=== PATIENT | male | born 1970 | race Caucasian/White ===

== ENCOUNTER 2020-07-16 08:55 | Outpatient (REF) | payer MEDICARE, MEDICAID, SELFPAY ==
[2020-07-16 11:47] LABS: Alanine Aminotransferase 77 U/L (0-40); Albumin Level 4.6 g/dL (3.5-5.0); Alkaline Phosphatase 58 U/L (39-117); Anion Gap 14 (12-20); Aspartate Amino Transferase 34 U/L (5-37); Bilirubin Total 0.8 mg/dL (0.0-1.0); Blood Urea Nitrogen 12 mg/dL (9-16); Calcium 8.9 mg/dL (8.4-10.2); Carbon Dioxide 27 mmol/L (22-29); Chloride 102 mmol/L (96-108); Estimated Glomerular Filt Rate > 60; Glucose Random 128 mg/dL (60-115); Potassium 3.8 mmol/l (3.3-5.1); Sodium 139 mmol/L (135-145); Total Protein 6.9 g/dL (6.5-8.0)
[2020-07-16 12:09] LABS: TSH reflex Free T4 63.86 mIU/mL (0.32-4.0)
[2020-07-16 12:43] LABS: Free T4 (Free Thyroxine) 0.83 ng/dL (0.71-1.85)
[2020-07-17 04:03] LABS: SARS COV2 IgG Negative (Negative)
== END 2020-07-16 08:56 | disposition home or self-care (01) ==
LOC: HO.HMGCLDS 08:55
PROVIDERS: PCP Nurse Practitioner Family; Visit Provider Internal Medicine
DX: E03.9 Hypothyroidism, unspecified (principal); Z20.828 Contact with and (suspected) exposure to other viral communicable diseases
CPT/HCPCS: 80053; 84439; 84443; 86769

== ENCOUNTER 2020-10-22 11:54 | Outpatient (REF) | payer MEDICARE, MEDICAID, SELFPAY ==
[2020-10-22 13:53] LABS: MANUAL DIFF FLAG NO
[2020-10-22 14:03] LABS: Basophils Percent Auto 0.5 % (0-2); Eosinophils Absolute Auto 0.2 X10*3/uL (0.0-0.4); Eosinophils Percent Auto 3.2 % (0-4); Hematocrit 49.8 % (42-52); Hemoglobin 17.2 g/dl (14.0-18.0); Imm Gran Abs Auto 0.01 X10*3/uL (0.00-0.03); Imm Gran Pct Auto 0.2 % (0.0-0.4); Lymphocytes Absolute Auto 1.3 X10*3/uL (1.2-4.9); Lymphocytes Percent Auto 20.2 % (20-40); Mean Corpuscular HGB Conc 34.5 g/dl (31.0-36.0); Mean Corpuscular Hemoglobin 32.6 pg (27.0-33.0); Mean Corpuscular Volume 94.3 fL (80-98); Monocytes Absolute Auto 0.5 X10*3/uL (0.1-1.2); Monocytes Percent Auto 7.2 % (2-11); Neutrophils Absolute Auto 4.5 X10*3/uL (2.0-8.3); Neutrophils Percent Auto 68.7 % (45-73); Platelet Count 198 X10*3/uL (160-400); Red Blood Count 5.28 X10*6/uL (4.60-5.80); Red Cell Distribution Width 12.9 % (11.0-16.0); White Blood Count 6.6 X10*3/uL (4.8-10.8)
== END 2020-10-22 11:55 | disposition home or self-care (01) ==
LOC: HO.HMGCLDS 11:54
PROVIDERS: PCP Nurse Practitioner Family; Visit Provider Nurse Practitioner Family
DX: D73.89 Other diseases of spleen (principal)
CPT/HCPCS: 36415; 85025

== ENCOUNTER 2020-10-30 15:02 | Outpatient (REF) | payer MEDICARE, MEDICAID, SELFPAY ==
--- NOTE | ~2020-10-30 | MR_ITS ---
EXAMINATION: MR ABDOMEN WITHOUT AND WITH CONTRAST CLINICAL INFORMATION: Follow-up splenic lesion COMPARISON: Previous abdominal ultrasound June 2015 TECHNIQUE: MR abdomen was performed without and with use of 10 mL intravenous Gadavist gadolinium contrast. Postcontrast images are performed in multiphase dynamic sequences. Imaging was performed in 3 planes. FINDINGS: LUNG BASES: The visualized lung bases are unremarkable. LIVER, GALLBLADDER, AND BILIARY TREE: The liver is normal in size in size and contour. There is fatty infiltration of the liver with areas of focal fatty sparing. No focal liver lesion is seen. The gallbladder is unremarkable with no evidence of gallbladder wall thickening, or obvious pericholecystic inflammatory changes. PANCREAS: Unremarkable. SPLEEN: There are 4 lesions in the spleen. The largest measures 1.5 cm in the inferior hilum of the spleen likely corresponds to lesion seen on prior ultrasound. These are ISO in signal on T1-weighted sequences to the spleen, slightly high signal on T2-weighted sequences and demonstrate peripheral along enhancement. MR appearance is suggestive of multiple liver hemangiomas. ADRENAL GLANDS: Normal. KIDNEYS AND URETERS: There are bilateral renal cysts. The kidneys are otherwise unremarkable. GASTROINTESTINAL TRACT: There is mild diverticulosis of the colon. No bowel obstruction. No ascites or fluid collection. ABDOMINAL WALL: No significant hernia is appreciated. LYMPH NODES: No lymphadenopathy. VASCULAR: Unremarkable. OSSEOUS STRUCTURES: Marrow signal normal. MR/MR abdomen wo/w con IMPRESSION: Multiple splenic hemangiomas. Fatty infiltration of the liver. Bilateral renal cysts.
== END 2020-10-30 15:03 | disposition home or self-care (01) ==
LOC: HO.MRI 15:02
PROVIDERS: Visit Provider Nurse Practitioner Family
DX: D73.89 Other diseases of spleen (principal)
CPT/HCPCS: 74183; A9585

== ENCOUNTER 2020-11-10 12:01 | Outpatient (REF) | payer MEDICARE, MEDICAID, SELFPAY ==
[2020-11-10 14:21] LABS: Alanine Aminotransferase 85 U/L (0-40); Albumin Level 4.6 g/dL (3.5-5.0); Alkaline Phosphatase 60 U/L (39-117); Anion Gap 14 (12-20); Aspartate Amino Transferase 37 U/L (5-37); Bilirubin Total 1.2 mg/dL (0.0-1.0); Blood Urea Nitrogen 13 mg/dL (9-16); Calcium 9.2 mg/dL (8.4-10.2); Carbon Dioxide 30 mmol/L (22-29); Chloride 101 mmol/L (96-108); Estimated Glomerular Filt Rate > 60; Glucose Random 240 mg/dL (60-115); Potassium 3.9 mmol/L (3.3-5.1); Sodium 141 mmol/L (135-145); Total Protein 7.1 g/dL (6.5-8.0)
[2020-11-10 14:45] LABS: TSH reflex Free T4 3.33 uIU/mL (0.32-4.0)
== END 2020-11-10 12:02 | disposition home or self-care (01) ==
LOC: HO.HMGCLDS 12:01
PROVIDERS: PCP Nurse Practitioner Family; Visit Provider Nurse Practitioner Family
DX: E03.9 Hypothyroidism, unspecified (principal)
CPT/HCPCS: 36415; 80053; 84443

== ENCOUNTER 2020-11-11 10:00 | Outpatient (REF) | payer MEDICARE, MEDICAID, SELFPAY ==
[2020-11-11 12:00] LABS: Estimated Average Glucose 151 mg/dL; Hemoglobin A1c % 6.9 %
== END 2020-11-11 10:01 | disposition home or self-care (01) ==
LOC: HO.HMGCLDS 10:00
PROVIDERS: PCP Nurse Practitioner Family; Visit Provider Nurse Practitioner Family
DX: R73.01 Impaired fasting glucose (principal)
CPT/HCPCS: 36415; 83036

== ENCOUNTER 2021-12-02 12:14 | Outpatient (REF) | payer MEDICARE, MEDICAID, SELFPAY ==
[2021-12-02 14:00] LABS: Appearance Urine HAZY; Color Urine YELLOW; Glucose Urine UA 100 MG/DL (NEG); Leukocyte Esterase Urine NEG (NEG); Nitrite Urine NEG (NEG); Urine Blood NEG (NEG); Urine Ketones NEG (NEG); Urine Protein NEG (NEG-TRACE)
[2021-12-02 14:10] LABS: Estimated Average Glucose 197 mg/dL; Hemoglobin A1c % 8.5 %
[2021-12-02 14:36] LABS: Creatinine Urine 157.88 mg/dL; Microalbum/Creatinine Ratio Ur 17.1 ug/mg cr
[2021-12-02 15:14] LABS: Alanine Aminotransferase 51 U/L (0-40); Albumin Level 4.4 g/dL (3.5-5.0); Alkaline Phosphatase 58 U/L (39-117); Anion Gap 15 (12-20); Aspartate Amino Transferase 28 U/L (5-37); Bilirubin Total 1.5 mg/dL (0.0-1.0); Blood Urea Nitrogen 13 mg/dL (9-16); Calcium 9.7 mg/dL (8.4-10.2); Carbon Dioxide 25 mmol/L (22-29); Chloride 103 mmol/L (96-108); Cholesterol 176 mg/dL; Estimated Glomerular Filt Rate > 60; Glucose Fasting 178 mg/dL (60-99); HDL Cholesterol 33 mg/dL; LDL Cholesterol Calculated 127 mg/dl; Potassium 4.6 mmol/L (3.3-5.1); Sodium 138 mmol/L (135-145); Total Protein 7.2 g/dL (6.5-8.0); Triglycerides 81 mg/dL
[2021-12-02 16:04] LABS: Free T4 (Free Thyroxine) 0.93 ng/dL (0.71-1.85)
== END 2021-12-02 12:15 | disposition home or self-care (01) ==
LOC: HO.HMGCLDS 12:14
PROVIDERS: Visit Provider Nurse Practitioner Family
DX: Z00.00 Encounter for general adult medical examination without abnormal findings (principal); E11.9 Type 2 diabetes mellitus without complications
CPT/HCPCS: 36415; 80053; 80061; 81003; 82043; 83036; 84439; 84443

== ENCOUNTER 2021-12-16 12:21 | Outpatient (REF) | payer MEDICARE, MEDICAID, SELFPAY ==
--- NOTE | ~2021-12-16 | XR_ITS ---
EXAMINATION: XR CHEST CLINICAL INFORMATION: Chest pain COMPARISON: 06/24/2016 TECHNIQUE: 2 views of the chest were obtained. FINDINGS: Normal symmetric lung volumes. No parenchymal consolidation. Stable faint subcentimeter density projecting over the left upper lung/anterior third rib. Diagnostic considerations as discussed previously, including spondylotic bone lesion, such as a bone island, or calcified granuloma. Regardless of etiology, it is benign. No pleural effusion. No pneumothorax. Cardiomediastinal silhouette and pulmonary vascularity are within normal limits. The aorta is atherosclerotic. No acute osseous abnormalities. XR/XR chest 2V IMPRESSION: No acute findings.
[2021-12-16 14:07] LABS: Bilirubin Direct 0.3 mg/dL (0.0-0.5)
[2021-12-17 08:34] LABS: HBS Num1 1.03 mIU/mL (0-7.99); HBc Num1 0.15 S/CO (0.00-0.79); Hepatitis B Core Antibody Nonreactive (Nonreactive); ~HepC Num1 0.12 S/CO (0.00-0.79); ~Hepatitis B Surface Antibody NONREACTIVE (Nonreactive); ~Hepatitis C Antibody Nonreactive (Nonreactive)
[2021-12-17 08:45] LABS: Hepatitis B Surface Antigen Negative (Negative)
[2021-12-18 08:16] LABS: HBsAGNum1 0.19 S/CO (0.00-0.99); Hepatitis A Antibody IgM 0.18 Index (0-0.79); ~Hepatitis A Antibody IgM Nonreactive (Nonreactive)
== END 2021-12-16 12:22 | disposition home or self-care (01) ==
LOC: HO.HMGCX 12:21
PROVIDERS: PCP Nurse Practitioner Family; Visit Provider Nurse Practitioner Family
DX: R07.89 Other chest pain (principal); R74.8 Abnormal levels of other serum enzymes; R17 Unspecified jaundice
CPT/HCPCS: 36415; 71046; 82247; 82248; 86704; 86706; 86709; 86803; 87340

== ENCOUNTER 2022-01-19 12:58 | Outpatient (REF) | payer MEDICARE, MEDICAID, SELFPAY ==
--- NOTE | ~2022-01-19 | XR_ITS ---
EXAMINATION: XR chest 2V CLINICAL INFORMATION: Reason for Exam J18.9 - Pneumonia, unspecified organism COMPARISON: December 2021 TECHNIQUE: XR chest 2V Lungs and Eve: Both lungs are clear. Pleura: Normal. Costophrenic angles are sharp. No pneumothorax. Heart: The heart is normal in size. Mediastinum: The mediastinum is within normal limits.. Bones: Skeletal structures included are normal for patient's age. XR/XR chest 2V IMPRESSION: No radiographic evidence of acute cardiopulmonary disease.
[2022-01-19 14:11] LABS: Estimated Average Glucose 189 mg/dL; Hemoglobin A1c % 8.2 %
[2022-01-19 14:28] LABS: Creatinine Urine 160.97 mg/dL; Microalbum/Creatinine Ratio Ur 13.6 ug/mg cr
[2022-01-19 14:30] LABS: Alanine Aminotransferase 46 U/L (0-40); Albumin Level 4.5 g/dL (3.5-5.0); Alkaline Phosphatase 60 U/L (39-117); Anion Gap 14 (12-20); Aspartate Amino Transferase 26 U/L (5-37); Bilirubin Total 0.7 mg/dL (0.0-1.0); Blood Urea Nitrogen 13 mg/dL (9-16); Calcium 9.7 mg/dL (8.4-10.2); Carbon Dioxide 26 mmol/L (22-29); Chloride 103 mmol/L (96-108); Cholesterol 196 mg/dL; Estimated Glomerular Filt Rate > 60; Glucose Random 180 mg/dL (60-115); HDL Cholesterol 34 mg/dL; LDL Cholesterol Calculated 132 mg/dl; Potassium 4.2 mmol/L (3.3-5.1); Sodium 139 mmol/L (135-145); Total Protein 7.4 g/dL (6.5-8.0); Triglycerides 150 mg/dL
[2022-01-19 14:48] LABS: TSH reflex Free T4 5.56 uIU/mL (0.32-4.0)
[2022-01-19 16:06] LABS: Free T4 (Free Thyroxine) 0.95 ng/dL (0.71-1.85)
== END 2022-01-19 12:59 | disposition home or self-care (01) ==
LOC: HO.HMGCX 12:58
PROVIDERS: Visit Provider Nurse Practitioner Family
DX: J18.9 Pneumonia, unspecified organism (principal); E03.9 Hypothyroidism, unspecified; E11.9 Type 2 diabetes mellitus without complications
CPT/HCPCS: 36415; 71046; 80053; 80061; 82043; 83036; 84439; 84443

== ENCOUNTER 2022-02-10 10:32 | Outpatient (REF) | payer MEDICARE, MEDICAID, SELFPAY ==
[2022-02-10 12:17] LABS: TSH reflex Free T4 5.31 uIU/mL (0.32-4.0)
[2022-02-10 13:08] LABS: Free T4 (Free Thyroxine) 0.99 ng/dL (0.71-1.85)
== END 2022-02-10 10:33 | disposition home or self-care (01) ==
LOC: HO.HMGCLDS 10:32
PROVIDERS: PCP Nurse Practitioner Family; Visit Provider Nurse Practitioner Family
DX: E03.9 Hypothyroidism, unspecified (principal)
CPT/HCPCS: 36415; 84439; 84443

== ENCOUNTER 2022-02-17 12:54 | Outpatient (REF) | payer MEDICARE, MEDICAID, SELFPAY ==
--- NOTE | ~2022-02-17 | US_ITS ---
EXAMINATION: US COMPLETE ABDOMEN WITH LIVER ELASTOGRAPHY CLINICAL INFORMATION: Abnormal levels of serum enzyme COMPARISON: MRI abdomen 10/30/2020 TECHNIQUE: Real-time imaging of the abdominal viscera. Noninvasive ultrasound liver fibrosis assessment is performed using Crys ElastPQ point quantification shear wave elastography (2D-SWE) with a C5-2 MHz transducer. Multiple elastography samples are obtained. FINDINGS: PANCREAS: The visualized pancreatic head are normal in appearance. The remainder of the pancreas is obscured from visualization by the overlying bowel gas. ABDOMINAL AORTA: The middle, and distal aortic segments are normal in caliber. The proximal abdominal aorta is not well visualized. INFERIOR VENA CAVA: Visualized portions are normal. LIVER:The liver demonstrates normal size, contour and diffusely heterogeneous with areas of focal fatty sparing adjacent to gallbladder. No focal lesion or intrahepatic biliary duct dilatation. The right lobe measures 16.2 cm in length. The left lobe measures 12.5 cm in length. Portal flow is hepatopedal Shear wave liver elastography median stiffness is 1.69 m/s (reference: normal median stiffness is 1.3 m/s or less). IQR/median stiffness to assess sampling precision is 0.13 (reference: good quality data set is IQR/median stiffness of 0.15 or less). GALLBLADDER: Gallbladder wall thickness measures 0.2 cm The gallbladder is physiologically distended without evidence of stones, sludge, polyps, wall thickening or pericholecystic fluid. COMMON BILE DUCT: Normal in caliber measuring 0.3 cm in diameter. RIGHT KIDNEY: There is anechoic cyst in midpole measuring 2.4 x 2.4 x 2.3 cm and lower pole measuring 1.1 x 1.0 x 0 0.9 mL No hydronephrosis. No renal calculi or focal parenchymal lesions. The kidney measures 12.0 cm in maximum dimension. LEFT KIDNEY: No hydronephrosis. No renal calculi or focal parenchymal lesions. The kidney measures 11.0 cm in maximum dimension. There is anechoic cyst in the lower pole measuring 0.9 x 0.8 x 0.8 cm. SPLEEN: Normal. The spleen measures 9.7. cm in maximum dimension. There are multiple echogenic lesions visualized consistent with hemangiomas.. The largest lesion measures 1.9 x 1.6 x 1.5 cm. On previous MRI the largest lesion measured 1.5 cm in the inferior hilum FREE FLUID: None. US/US abdomen comp w elastography IMPRESSION: 1. Heterogeneous echogenic liver with areas of focal fatty sparing around the gallbladder. Multiple hemangiomas of the spleen is approximately 4 was noted on the previous MRI abdomen. Bilateral renal cysts. No echogenic renal calculi. 2. Liver elastography: Median liver stiffness measures 1.69 m/s corresponding to cACLD (ruled out) REFERENCE: Society of Radiologists in Ultrasound Liver Stiffness Thresholds (2019): LIVER STIFFNESS THRESHOLDS: *Liver Stiffness equal or less than 1.3 m/s: High probability of being normal. *Liver Stiffness less than 1.7 m/s: In the absence of other known clinical signs, rules out compensated advanced chronic liver disease. *Liver Stiffness 1.7-2.1 m/s: Suggestive of compensated advanced chronic liver disease but need further test for confirmation. *Liver Stiffness over 2.1 m/s: Rules in compensated advanced chronic liver disease. *Liver Stiffness over 2.4 m/s: Suggestive of clinically significant portal hypertension. QUALITY OF DATA SET: *IQR/Median value equal or less than 0.15 implies a quality data set. *IQR/Median value over 0.15 implies a poor quality data set. SIGNIFICANT CHANGE FROM PRIOR EXAM: Significant change if liver stiffness measurement is 10% or greater from prior exam. OTHER CONSIDERATIONS: The stage of liver fibrosis may be overestimated in the setting of acute hepatitis, liver inflammation, elevated liver function tests, hepatic vascular congestion, obstructive cholestasis, non-fasting state, and infiltrative diseases such as amyloidosis and lymphoma. In some patients with NAFLD, the liver stiffness thresholds for compensated advanced chronic liver disease may be lower. In causes other than viral hepatitis and NAFLD, liver stiffness thresholds are not well established.
== END 2022-02-17 12:55 | disposition home or self-care (01) ==
LOC: HO.US 12:54
PROVIDERS: Visit Provider Nurse Practitioner Family
DX: R74.8 Abnormal levels of other serum enzymes (principal)
CPT/HCPCS: 76705; 76981

== ENCOUNTER 2022-03-31 12:26 | Outpatient (REF) | payer MEDICARE, MEDICAID, SELFPAY ==
[2022-03-31 14:21] LABS: TSH reflex Free T4 0.81 uIU/mL (0.32-4.0)
== END 2022-03-31 12:27 | disposition home or self-care (01) ==
LOC: HO.HMGCLDS 12:26
PROVIDERS: PCP Nurse Practitioner Family; Visit Provider Nurse Practitioner Family
DX: E03.9 Hypothyroidism, unspecified (principal)
CPT/HCPCS: 36415; 84443

== ENCOUNTER → 2022-04-28 14:51 | Outpatient (BNVA) | payer MEDICARE, MEDICAID, SELFPAY | PROVIDERS: PCP Nurse Practitioner Family; Visit Provider Nurse Practitioner | DX: Z01.818 Encounter for other preprocedural examination (principal) | CPT/HCPCS: 99202 ==

== ENCOUNTER 2022-06-24 11:31 | Day surgery (SDC) | payer MEDICARE, MEDICAID, SELFPAY ==
--- NOTE | 2022-06-23 08:47 | HO.ANESPROP2 ---
Documented by User: Mag Ruiz NP 06/23/22 08:48 HPI - Anesthesia Eval Consult details Narrative: 52yo M for Colonoscopy PMFSH Active Problems Active Problems: All Active Problems (Updated 06/09/22 @ 07:26 by Lukasz Ferro, [facility]) Screening PSA (prostate specific antigen) (Acute) Preop examination (Acute) Screen for colon cancer (Acute) Pneumonia (Acute) Medication management (Acute) Elevated liver enzymes (Acute) Elevated bilirubin (Acute) Chest discomfort (Acute) Acute viral bronchitis (Acute) Dermatitis, unspecified (Acute) Diabetes (Acute) Elevated fasting blood sugar (Acute) Splenic lesion (Acute) LLQ pain (Acute) Hypothyroid (Acute) Physical exam (Acute) GERD (gastroesophageal reflux disease) (Acute) Past Medical History Medical History Cervical adenopathy GERD (gastroesophageal reflux disease) Hypothyroid Leg edema Lung nodule Physical exam Presbyesophagus Thyroid carcinoma Thyroid nodule Family History Family History Father HTN (hypertension) Diabetes mellitus Mother No problems noted. Maternal Grandmother HTN (hypertension) Brother No problems noted. Surgical History Surgical History History of appendectomy History of thyroidectomy Social History Social History Housing: House Alcohol intake: never Patient Tobacco Use Status: Never used Tobacco e-Cigarette/Vaping Use: Never Used Second Hand Smoke Exposure: No Are you DNR?: No Advance Directives: No Advance Directives Information Provided: Yes service: No Current occupational status: employed Current occupation: [employer] Current occupational exposures/hazards: No Cognitive needs: No Hearing needs: No Vision needs: No Meds Allergies Allergy/AdvReac Type Severity Reaction Status Date / Time No Known Allergies Allergy Verified 04/28/22 15:11 [No Known Allergies*] Exam Exam Date and Time: June 23, 2022 0847 Pertinent Lab Results Pertinent Lab Results: Laboratory Tests 01/19/22 13:11 Sodium 139 Potassium 4.2 Chloride 103 BUN 13 Creatinine 0.98 Narrative Narrative: EKG 11/2021 NSR @ 85 Assessment and Plan Assessment Anesthesia Assessment: Chart Reviewed Documented by User: Bessy Magana MD 06/24/22 12:32 [facility] Past Medical History Medical History Cervical adenopathy GERD (gastroesophageal reflux disease) Hypothyroid Leg edema Lung nodule Physical exam Presbyesophagus Thyroid carcinoma Thyroid nodule Functional capacity: independent ambulation Family History Family History Father HTN (hypertension) Diabetes mellitus Mother No problems noted. Maternal Grandmother HTN (hypertension) Brother No problems noted. Family history of problems with anesthesia: No Surgical History Surgical History History of appendectomy History of thyroidectomy History of Problems with Anesthesia: No Social History Social History Housing: House Alcohol intake: never Patient Tobacco Use Status: Never used Tobacco e-Cigarette/Vaping Use: Never Used Second Hand Smoke Exposure: No Are you DNR?: No Advance Directives: No Advance Directives Information Provided: Yes service: No Current occupational status: employed Current occupation: [employer] Current occupational exposures/hazards: No Cognitive needs: No Hearing needs: No Vision needs: No Meds Allergies Allergy/AdvReac Type Severity Reaction Status Date / Time No Known Allergies Allergy Verified 04/28/22 15:11 [No Known Allergies*] Exam Airway Mallampati Class: III TM Dist: >3cm Neck ROM: Full Heart: RRR Lungs: CTA Assessment and Plan Final Anesthetic Review Family History of Problems with Anesthesia: No History of Problems with Anesthesia: No ASA Class: II Final Preanesthetic Review: No Changes in Pt Med Stat, Meds/Allgs Chart Reviewed, Consent Obtained/Reviewed and Anes Risks/Benef Reviewed Patient Risk: Low Procedure Risk: Low Anesthetic Plan Anesthetic Plan: MAC: Disposition: Standard PACU
[2022-06-24 07:26] VITALS: BMI 28.8
[2022-06-24 11:48] VITALS: BP 130/45; PULSE 90; RESP 19; TEMP 36.1; O2SAT 97
[2022-06-24 11:50] LABS: Glucose, Whole Blood 127 mg/dL (60-115)
[2022-06-24] MEDS: Lactated Ringers 1,000 ML 100 ML IVCONT (12:05)
--- NOTE | 2022-06-24 12:26 | MHC.SHP ---
Pre-Procedural Eval Section A Date of Service: 06/24/22 Section B Chief Complaint: screening Details of Present Illness: 52y.o M at average risk for CRC here for screening colonoscopy Medical History: No relevant PMH (T2DM, GERD, thyroid ca s/p thyroidectomy ) History of Previous Operations: Relevant previous surgery/procedure and date(s) (remote hx of appendectomy ) Allergies: Allergies Allergy/AdvReac Type Severity Reaction Status Date / Time No Known Allergies Allergy Verified 04/28/22 15:11 [No Known Allergies*] Review of Systems Review of Systems Comment: 10 point ROS negative Exam Exam Comment: Gen appear: No acute distress, well nourished HEENT: no icterus, no cervical lymphadenopathy Chest: No overt resp distress CVS: S1/S2, regular Abd: soft, nontender, nondistended Neuro: Does not make eye contact but able to answer all questions appropriately Ext: no peripheral edema Plan Diagnosis/Plan: Unchanged I have reviewed the history and physical and performed a pertinent physical examination on my patient. No changes have occurred unless specified.
--- NOTE | 2022-06-24 12:38 | P.OP_ITS ---
Operative Note Operative Note Date of Service: 06/24/22 Narrative: Procedure: Colonoscopy Indication: Screening Endoscopist: Yany Corbin MD Anesthesia Provider: Dr Paris Anesthesia type: MAC Instrument: Olympus [id number]-H190L Consent: Indication, risks vs benefits, and alternatives were discussed with the patient who gave written informed consent to proceed. Monitoring: EKG, pulse, pulse oximetry and blood pressure were monitored throughout the procedure. Please see anesthesia flowsheet. Procedure: The patient was brought to the procedure room and placed in the left lateral decubitus position. IV medications were administered by the anesthesia provider in attendance. A digital rectal exam was performed which was normal. The colonoscope was then inserted through the anus and advanced through the colon to the cecum at 85 cm. Mucosa was carefully examined under high definition white light as the instrument was slowly withdrawn in a retrograde panoramic fashion. Retroflexion was performed in rectum. The procedure was not difficult. There were no immediate obvious complications. The quality of the prep was BBPS: 3+3+2 = adequate Withdrawal time 23 minutes. Limitations: No limitations. Findings: Mucosa: Normal to cecum. Protruding lesions: * 1 sessile polyp of size 8 mm in ascending colon. Cold snare polypectomy was performed. The polyp was completely removed and retrieved. * 1 sessile polyp of size 7 mm in transverse colon. Cold snare polypectomy was performed. The polyp was completely removed and retrieved. * 1 sessile polyp of size 2 mm in sigmoid colon. Cold snare polypectomy was performed. The polyp was completely removed and retrieved. * Large internal hemorrhoids without stigmata of recent bleeding. Excavated lesions: * Few small mouthed diverticulosis of sigmoid colon. Impression: 1. Normal colon mucosa 2. Total of 3 polyps removed from ascending, transverse, and sigmoid colon. 3. Internal hemorrhoids Recommendations: - Follow path results. - Repeat colonoscopy in 3-5 years if all 3 polyps are adenomas.
[2022-06-24 13:20] VITALS: BP 90/58; PULSE 73; RESP 16; TEMP 36.6; O2SAT 97
[2022-06-24 13:35] VITALS: BP 103/62; PULSE 78; RESP 16; O2SAT 95
[2022-06-24 13:50] VITALS: BP 122/80; PULSE 80; RESP 16; TEMP 36.6; O2SAT 95
== END 2022-06-24 14:34 | disposition home or self-care (01) ==
PROVIDERS: PCP Nurse Practitioner Family; Visit Provider Internal Medicine
PROC: 0DJD8ZZ Inspection of Lower Intestinal Tract, Via Natural or Artificial Opening Endoscopic (ICD-10-PCS; CPT 45378; principal; 2022-06-24 12:40)
DX: Z12.11 Encounter for screening for malignant neoplasm of colon (principal); D12.2 Benign neoplasm of ascending colon; D12.3 Benign neoplasm of transverse colon; K63.5 Polyp of colon; K57.30 Diverticulosis of large intestine without perforation or abscess without bleeding; K64.8 Other hemorrhoids; K21.9 Gastro-esophageal reflux disease without esophagitis; E11.9 Type 2 diabetes mellitus without complications; E03.9 Hypothyroidism, unspecified; R91.1 Solitary pulmonary nodule; Z85.850 Personal history of malignant neoplasm of thyroid; Z79.84 Long term (current) use of oral hypoglycemic drugs; Z79.899 Other long term (current) drug therapy
CPT/HCPCS: 45385; 82947; 88305

== ENCOUNTER → 2022-07-08 15:37 | Outpatient (BNVA) | payer MEDICARE, MEDICAID, SELFPAY | PROVIDERS: PCP Nurse Practitioner Family; Visit Provider Nurse Practitioner | DX: D12.6 Benign neoplasm of colon, unspecified (principal) | CPT/HCPCS: 99212 ==

== ENCOUNTER 2022-09-14 10:11 | Outpatient (REF) | payer MEDICARE, MEDICAID, SELFPAY ==
[2022-09-14 11:23] LABS: MANUAL DIFF FLAG NO
[2022-09-14 11:29] LABS: Appearance Urine Clear; Color Urine Yellow; Glucose Urine UA >=1000 mg/dL (Negative); Leukocyte Esterase Urine Negative (Negative); Nitrite Urine Negative (Negative); Specific Gravity - Urine >= 1.030 (1.005-1.025); UMIC TRIGGER UACC YES; Urine Blood Negative (Negative); Urine Ketones Negative (Negative); Urine Protein Negative (Neg-Trace)
[2022-09-14 11:37] LABS: Basophils Percent Auto 0.4 % (0-2); Eosinophils Absolute Auto 0.3 X10*3/uL (0.0-0.4); Eosinophils Percent Auto 3.4 % (0-4); Hematocrit 51.1 % (42.0-52.0); Hemoglobin 17.5 g/dl (14.0-18.0); Imm Gran Abs Auto 0.03 X10*3/uL (0.00-0.03); Imm Gran Pct Auto 0.4 % (0.0-0.4); Lymphocytes Absolute Auto 1.5 X10*3/uL (1.2-4.9); Lymphocytes Percent Auto 18.2 % (20-40); Mean Corpuscular HGB Conc 34.2 g/dl (31.0-36.0); Mean Corpuscular Hemoglobin 31.5 pg (27.0-33.0); Mean Corpuscular Volume 92.1 fL (80.0-98.0); Mean Platelet Volume 10.9 fL (9.4-12.4); Monocytes Absolute Auto 0.8 X10*3/uL (0.1-1.2); Neutrophils Absolute Auto 5.7 x10*3/uL (2.0-8.3); Neutrophils Percent Auto 68.6 % (45-73); Platelet Count 188 X10*3/uL (160-400); Red Blood Count 5.55 X10*6/uL (4.60-5.80); Red Cell Distribution Width 13.4 % (11.0-16.0); White Blood Count 8.3 X10*3/uL (4.8-10.8)
[2022-09-14 11:55] LABS: Estimated Average Glucose 157 mg/dL; Hemoglobin A1c % 7.1 %
[2022-09-14 12:03] LABS: Bacteria Urine None Seen (None Seen); Hyaline Casts Urine 0-2 /LPF (0-2); RBC Urine 0-2 /HPF (0-2); Squamous Epithelial Cell Urine 0-2 /HPF (0-2); WBC Urine 0-5 /HPF (0-5)
[2022-09-14 13:05] LABS: Alanine Aminotransferase 50 U/L (0-40); Albumin Level 4.6 g/dL (3.5-5.0); Alkaline Phosphatase 70 U/L (39-117); Anion Gap 12 (12-20); Aspartate Amino Transferase 28 U/L (5-37); Bilirubin Total 1.4 mg/dL (0.0-1.0); Blood Urea Nitrogen 13 mg/dL (9-16); Calcium 9.6 mg/dL (8.4-10.2); Carbon Dioxide 29 mmol/L (22-29); Chloride 105 mmol/L (96-108); Cholesterol 123 mg/dL; Estimated Glomerular Filt Rate > 60; Glucose Fasting 133 mg/dL (60-99); HDL Cholesterol 33 mg/dL; LDL Cholesterol Calculated 73 mg/dl; Sodium 142 mmol/L (135-145); Total Protein 6.9 g/dL (6.5-8.0); Triglycerides 87 mg/dL
[2022-09-14 13:30] LABS: Prostate Specific Antigen Scr 0.98 ng/mL (<0.05-4.0); TSH reflex Free T4 0.29 uIU/mL (0.32-4.0)
== END 2022-09-14 10:12 | disposition home or self-care (01) ==
LOC: HO.HMGCLDS 10:11
PROVIDERS: Visit Provider Nurse Practitioner Family
DX: Z12.5 Encounter for screening for malignant neoplasm of prostate (principal); E11.9 Type 2 diabetes mellitus without complications
CPT/HCPCS: 36415; 80053; 80061; 81001; 83036; 84153; 84439; 84443; 85025

== ENCOUNTER 2023-05-18 11:43 | Outpatient (REF) | payer MEDICARE, MEDICAID, SELFPAY ==
[2023-05-18 13:19] LABS: MANUAL DIFF FLAG NO
[2023-05-18 13:27] LABS: Basophils Absolute Auto 0.1 X10*3/uL (0.0-0.2); Basophils Percent Auto 0.7 % (0-2); Eosinophils Absolute Auto 0.3 X10*3/uL (0.0-0.4); Eosinophils Percent Auto 3.9 % (0-4); Hematocrit 50.7 % (42.0-52.0); Hemoglobin 17.3 g/dl (14.0-18.0); Imm Gran Abs Auto 0.02 X10*3/uL (0.00-0.03); Imm Gran Pct Auto 0.3 % (0.0-0.4); Lymphocytes Absolute Auto 1.4 X10*3/uL (1.2-4.9); Lymphocytes Percent Auto 19.8 % (20-40); Mean Corpuscular HGB Conc 34.1 g/dl (31.0-36.0); Mean Corpuscular Hemoglobin 31.7 pg (27.0-33.0); Mean Platelet Volume 10.8 fL (9.4-12.4); Monocytes Absolute Auto 0.6 X10*3/uL (0.1-1.2); Neutrophils Absolute Auto 4.9 x10*3/uL (2.0-8.3); Neutrophils Percent Auto 67.3 % (45-73); Platelet Count 198 X10*3/uL (160-400); Red Blood Count 5.45 X10*6/uL (4.60-5.80); Red Cell Distribution Width 13.6 % (11.0-16.0); White Blood Count 7.2 X10*3/uL (4.8-10.8)
[2023-05-18 13:31] LABS: Estimated Average Glucose 148 mg/dL; Hemoglobin A1c % 6.8 % (<6.0)
[2023-05-18 13:57] LABS: Alanine Aminotransferase 39 U/L (0-40); Albumin Level 4.4 g/dL (3.5-5.0); Alkaline Phosphatase 65 U/L (39-117); Anion Gap 12 (12-20); Aspartate Amino Transferase 26 U/L (5-37); Bilirubin Total 1.1 mg/dL (0.0-1.0); Blood Urea Nitrogen 15 mg/dL (9-16); Calcium 9.5 mg/dL (8.4-10.2); Carbon Dioxide 26 mmol/L (22-29); Chloride 106 mmol/L (96-108); Cholesterol 124 mg/dL (<200); Estimated Glomerular Filt Rate > 60; Glucose Fasting 153 mg/dL (60-99); HDL Cholesterol 36 mg/dL (>40); LDL Cholesterol Calculated 72 mg/dL (<100); Potassium 3.7 mmol/L (3.3-5.1); Sodium 140 mmol/L (135-145); Total Protein 7.2 g/dL (6.5-8.0); Triglycerides 80 mg/dL (<150)
[2023-05-18 13:58] LABS: TSH reflex Free T4 0.35 uIU/mL (0.32-4.0)
== END 2023-05-18 11:44 | disposition home or self-care (01) ==
LOC: HO.HMGCLDS 11:43
PROVIDERS: PCP Nurse Practitioner Family; Visit Provider Nurse Practitioner Family
DX: E11.9 Type 2 diabetes mellitus without complications (principal)
CPT/HCPCS: 36415; 80053; 80061; 83036; 84443; 85025

== ENCOUNTER 2023-05-30 13:15 | Outpatient (AMB) | payer MEDICARE, MEDICAID, SELFPAY ==
[2023-05-30 13:29] VITALS: BP 118/72; PULSE 80; O2SAT 94; BMI 30.3
--- NOTE | 2023-05-30 13:29 | MHC.PC.OV ---
Vital Signs 05/30/23 13:29 Height 5 ft 8 in Weight 199 lb 4 oz BMI 30.3 BP 118/72 Blood Pressure Location Rt brachial Position Sitting Pulse 80 Pulse Source Pulse Oximeter Pulse Oximetry (%) 94 Oxygen Delivery Method Room Air Intake Visit Reasons: 3m follow up DM Allergies No Known Allergies [No Known Allergies*] Allergy (Verified 05/30/23 13:31) Tobacco use date assessed: 05/30/23 Dental Screening Dental Screen Date: 05/30/23 Did you have a dental visit in the last 12 months?: No Did you have a dental problem in the last 6 months where you did not have access to dental care?: No Was dental information given to patient?: No HPI 3m follow up DM HPI Details Pt is a diabetic, on a statin. Last A1C was 6.8. Due for microalbumin, this has been ordered. Denies polyuria, polydipsia, reports intermittent neuropathy. Pt denies any signs and symptoms of hypoglycemia and does know how to correct it. Pt does not check his blood sugar often. Encouraged to do this and to get a pneumo vaccine at his pharmacy. eye exam is up to date. Pt has a follow up appt scheduled [facility] Medical History Cervical adenopathy GERD (gastroesophageal reflux disease) Hypothyroid Leg edema Lung nodule Physical exam Presbyesophagus Thyroid carcinoma Thyroid nodule Surgical History H/O colonoscopy History of appendectomy History of thyroidectomy Family History Father HTN (hypertension) Diabetes mellitus Mother No problems noted. Maternal Grandmother HTN (hypertension) Brother No problems noted. Social History Housing: House Alcohol intake: never Patient Tobacco Use Status: Never used Tobacco e-Cigarette/Vaping Use: Never Used Second Hand Smoke Exposure: No service: No Current occupational status: employed Current occupation: [employer] Current occupational exposures/hazards: No Cognitive needs: No Hearing needs: No Vision needs: No Questionnaire Thrive Questionnaire Date Thrive assessed: 10/04/22 JASON-7 AMB Questionnaire JASON-7 Date JASON - 7 assessed: 10/04/22 Source: Developed by Drs. Ernst Carpenter, Tierney Newsome, Ashwin Solano and colleagues, with an educational ana maría from [employer]. Review of Systems Const Reports as per HPI Physical exam (Primary Care) Vital Signs: Last Vital Signs Pulse 80 05/30/23 13:29 BP 118/72 05/30/23 13:29 Pulse Ox 94 05/30/23 13:29 Oxygen Delivery Method Room Air 05/30/23 13:29 BMI result Body Mass Index 30.3 Tobacco/Smoking Status: Tobacco use Status Tobacco use date assessed 05/30/23 05/30/23 13:34 Patient Tobacco Use Status Never used Tobacco 05/30/23 13:29 e-Cigarette/Vaping Use Never Used 05/30/23 13:29 Thrive Assessment: Date of Thrive Assessment Date Thrive assessed 10/04/22 05/30/23 13:29 Const General: cooperative Orientation/consciousness: patient oriented x3 Resp Effort & Inspection: normal respiratory effort Auscultation: clear to auscultation bilaterally Cardio Rate: regular rate Rhythm: regular rhythm Heart sounds: S1 normal heart sound present and S2 normal heart sound present Neuro General: patient oriented x3 Extrem Other: bilat feet: + sensation with use of monofilament, elongated toenails, onychomycosis, dry scaling throughout Psych Appearance: grossly normal Mental Status: mental status grossly normal Speech and movement: Normal speech and movement present Affect: normal affect Attitude: cooperative Thought process: Normal thought process present Thought content: Normal thought content present Insight: Good insight present (Psych) Judgement: Good judgement present (Psych) Assessment and Plan Assessment & Plan (1) Overgrown toenails: Code(s): L60.2 - Onychogryphosis (2) Onychomycosis: Code(s): B35.1 - Tinea unguium (3) Diabetes: Code(s): E11.9 - Type 2 diabetes mellitus without complications Plan The patient agreed to the use of a registered medical transcriptionist for this encounter. Scribed for DEEPAK Rojas by Maude Latham registered medical transcriptionist, on 05/30/2023 at 13:45 EST. Coding Level of Care Code Est Pt Level 3 (58934) Diagnoses Overgrown toenails L60.2 Onychomycosis B35.1 Diabetes E11.9
== END 2023-05-30 14:28 | disposition home or self-care (01) ==
PROVIDERS: Visit Provider Nurse Practitioner Family
DX: L60.2 Onychogryphosis (principal); B35.1 Tinea unguium; E11.9 Type 2 diabetes mellitus without complications
CPT/HCPCS: 99213

== ENCOUNTER 2023-09-19 12:07 | Outpatient (REF) | payer MEDICARE, MEDICAID, SELFPAY | END 2023-09-19 12:08 | disposition home or self-care (01) | LOC: HO.HMGCLDS 12:07 | PROVIDERS: PCP Nurse Practitioner Family; Visit Provider Nurse Practitioner Family | DX: E11.9 Type 2 diabetes mellitus without complications (principal); Z12.5 Encounter for screening for malignant neoplasm of prostate | CPT/HCPCS: 36415; 80053; 80061; 83036; 84153; 84443; 85025 ==

== ENCOUNTER 2023-09-23 13:02 | Outpatient (AMB) | payer MEDICARE, MEDICAID, SELFPAY ==
[2023-09-23 13:26] VITALS: BP 122/80; PULSE 97; TEMP 36.8; O2SAT 97; BMI 30.7
--- NOTE | 2023-09-23 13:26 | MHC.OFFWIV ---
Intake Vital Signs 09/23/23 13:26 Height 5 ft 8 in Weight 202 lb BMI 30.7 BP 122/80 Blood Pressure Location Lt brachial Position Sitting Pulse 97 Pulse Source Pulse Oximeter Temp 98.2 F Temp Source Temporal Artery Scan Pulse Oximetry (%) 97 Oxygen Delivery Method Room Air Intake Visit Reasons: EP vomiting diarrhea chills [id number] Intake Note: pt is here today for vomiting diarrhea chills started today Patient Tobacco Use Status: Never used Tobacco Allergies No Known Allergies [No Known Allergies*] Allergy (Verified 09/23/23 13:27) Do you need a note to return to daycare/school/sports/work: Yes HPI HPI Comments History of Present Illness Details This is a 53-year-old male who presents to the office today for sick visit. Patient reports several episodes of nausea/vomiting/diarrhea today. He states he was feeling well last night; however, he woke this morning an upset stomach and 2 episodes of nausea/vomiting and 3 episodes of watery brown diarrhea. He states that his symptoms have significantly improved. He came to the walk-in clinic requesting work note as he had to call out of work due to his symptoms. He also reports mild chills but denies any fevers. [facility] Medical History Cervical adenopathy GERD (gastroesophageal reflux disease) Hypothyroid Leg edema Lung nodule Physical exam Presbyesophagus Thyroid carcinoma Thyroid nodule Surgical History H/O colonoscopy History of appendectomy History of thyroidectomy Family History Father HTN (hypertension) Diabetes mellitus Mother No problems noted. Maternal Grandmother HTN (hypertension) Brother No problems noted. Social History Housing: House Alcohol intake: never Patient Tobacco Use Status: Never used Tobacco e-Cigarette/Vaping Use: Never Used Second Hand Smoke Exposure: No service: No Current occupational status: employed Current occupation: [employer] Current occupational exposures/hazards: No Cognitive needs: No Hearing needs: No Vision needs: No Review of Systems Const All systems reviewed & are unremarkable except as noted in HPI and below Reports no additional complaints Eyes Reports no additional complaints ENT Reports no additional complaints Card Reports no additional complaints Resp Reports no additional complaints GI Reports no additional complaints Reports no additional complaints Musc Reports no additional complaints Skin/Breast Reports system reviewed and no additional complaints, except as documented Neuro Reports no additional complaints Psych Reports no additional complaints Endo Reports no additional complaints Trevin/Lymph Reports no additional complaints Aller/Immun Reports no additional complaints Physical Exam Vital Signs: Last Vital Signs Temp 98.2 F 09/23/23 13:26 Pulse 97 09/23/23 13:26 BP 122/80 09/23/23 13:26 Pulse Ox 97 09/23/23 13:26 Oxygen Delivery Method Room Air 09/23/23 13:26 BMI result Body Mass Index 30.7 Const Other: Vital signs reviewed. Constitutional: Non-toxic appearing. No acute distress. Well-developed and well-nourished. HEENT: Normocephalic and atraumatic. Skin: Warm and dry. No rashes or lesions noted. Neck: Full and painless range of motion. No cervical lymphadenopathy. Cardio: Regular rate. No lower extremity edema. No JVD. Pulmonary: No respiratory distress. No accessory muscle usage. Gastrointestinal: Soft, nontender, and nondistended in all 4 quadrants. Normoactive bowel sounds in all 4 quadrants. Musculoskeletal: Normal range of motion in joints throughout the body. No deformity or other signs of injury. Neuro: Alert and oriented x4. Cranial nerves 2-12 grossly intact. No focal deficits appreciated. Psych: Normal mood and affect. Assessment & Plan Assessment & Plan (1) Viral gastroenteritis: Code(s): A08.4 - Viral intestinal infection, unspecified Plan: This is a 53-year-old male who presented to the office complaining of an upset stomach with several episodes of nausea/vomiting/diarrhea today. On physical examination, he has no abdominal tenderness to palpation and he has normoactive bowel sounds throughout. His vital signs are stable, his physical exam is benign, and he is overall nontoxic appearing. History and physical most consistent with an acute viral gastroenteritis; low concern for acute abdomen given benign abdominal exam and normal vital signs. Patient was given a prescription for p.o. ondansetron 4 mg every 8 hours as needed for nausea/vomiting. He was recommended to eat a bland diet including bananas, rice, applesauce, and toast. He was encouraged to increase his fluid intake including water and sports drinks replace electrolytes. Patient was advised to follow-up here or proceed to the emergency room if he were to develop persistent or worsening symptoms such as melena/hematochezia, abdominal pain, or fever/chills. Patient verbalizes understanding and he is in agreement with the plan. Orders: Orders SARS-CoV2/FLU/RSV Today R09.89 - Other specified symptoms and signs involving the circulatory and respiratory systems Medications: New ondansetron 4 mg PO Q8H PRN 7 tabs 0RF nausea and vomiting Coding Level of Care Code Est Pt Level 3 (90475) Diagnoses Viral gastroenteritis A08.4
== END 2023-09-23 14:46 | disposition home or self-care (01) ==
PROVIDERS: PCP Nurse Practitioner Family; Visit Provider Physician Assistant Medical
DX: A08.4 Viral intestinal infection, unspecified (principal)
CPT/HCPCS: 99213

== ENCOUNTER 2023-09-23 16:23 | Outpatient (REF) | payer MEDICARE, MEDICAID, SELFPAY ==
[2023-09-23 17:07] LABS: Influenza A PCR NEGATIVE (Negative); Influenza B PCR NEGATIVE (Negative); Resp Syncy Virus RNA Qual PCR NEGATIVE (Negative); SARS COV2 PCR INHOUSE NEGATIVE (Negative)
== END 2023-09-23 16:24 | disposition home or self-care (01) ==
LOC: HO.LNP 16:23
PROVIDERS: Visit Provider Physician Assistant Medical
DX: R09.89 Other specified symptoms and signs involving the circulatory and respiratory systems (principal); Z11.52 Encounter for screening for COVID-19; Z20.828 Contact with and (suspected) exposure to other viral communicable diseases
CPT/HCPCS: 0241U

== ENCOUNTER 2023-09-29 13:29 | Outpatient (AMB) | payer MEDICARE, MEDICAID, SELFPAY ==
[2023-09-29 13:34] VITALS: BP 118/78; PULSE 97; O2SAT 97; BMI 30.7
--- NOTE | 2023-09-29 13:34 | MHC.PC.OV ---
Vital Signs 09/29/23 13:34 Height 5 ft 8 in Weight 202 lb BMI 30.7 BP 118/78 Blood Pressure Location Lt brachial Position Sitting Pulse 97 Pulse Source Pulse Oximeter Pulse Oximetry (%) 97 Oxygen Delivery Method Room Air Intake Visit Reasons: 4 Month follow up Intake Note: pt is here 4 month follow up with labs Special Events Fundraiser Required: No Allergies No Known Allergies [No Known Allergies*] Allergy (Verified 09/29/23 13:37) Tobacco use date assessed: 09/29/23 Dental Screening Dental Screen Date: 09/29/23 Did you have a dental visit in the last 12 months?: No Did you have a dental problem in the last 6 months where you did not have access to dental care?: No Was dental information given to patient?: Patient declined HPI 4 Month follow up HPI Details Pt is a diabetic, on a statin. Last A1C was 7.1. Due for microalbumin, this has been ordered. Denies polyuria, polydipsia, and neuropathy. Pt denies any signs and symptoms of hypoglycemia and does know how to correct it. Will increase jardiance from 10mg to 25mg. 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 Maternal Grandmother HTN (hypertension) Brother No problems noted. Social History Housing: House Alcohol intake: never Patient Tobacco Use Status: Never used Tobacco e-Cigarette/Vaping Use: Never Used Second Hand Smoke Exposure: No service: No Current occupational status: employed Current occupation: [employer] [email or web address] Current occupational exposures/hazards: No Cognitive needs: No Hearing needs: No Vision needs: No Questionnaire PHQ-9 Over the last 2 weeks, how often have you been bothered by any of the following problems? 1. Little interest or pleasure in doing things: not at all 2. Feeling down, depressed, or hopeless: not at all 3. Trouble falling or staying asleep, or sleeping too much: not at all 4. Feeling tired or having little energy: not at all 5. Poor appetite or overeating: not at all 6. Feeling bad about yourself - or that you are a failure or have let yourself or your family down: not at all 7. Trouble concentrating on things, such as reading the newspaper or watching television: not at all 8. Moving or speaking so slowly that other people could have noticed. Or the opposite - being so fidgety or restless that you have been moving around a lot more than usual: not at all 9. Thoughts that you would be better off or of hurting yourself in some way: not at all Total score: 0 Depression Screening Interpretation: Negative Depression Screening Done: Yes 12751 - PHQ-9 Billing: Yes Source: Developed by Drs. Ernst Carpenter, Tierney Newsome, Ashwin Solano and colleagues, with an educational ana maría from [employer]. Thrive Questionnaire Date Thrive assessed: 09/29/23 I am a: Patient What is your living situation today?: I have a steady place to live Within the past 12 months, did the food you bought not last and you didn't have the money to get more?: Never true Within the past 12 months, did you worry whether your food would run out before you got money to buy more?: Never true Do you have trouble paying for medicines?: No Do you have trouble getting transportation to medical appointments?: No Do you have trouble paying your heating and electricity bill?: No Do you have trouble taking care of your child, family member or friend?: No Do you have trouble with day-to-day activities such as bathing, preparing meals, shopping, managing finances, etc.?: No Are you currently unemployed and looking for a job?: No Are you interested in more education?: No Please select the resources that you would like help with: None Currently or been in a relationship where the following occur: no concerns reported JASON-7 AMB Questionnaire JASON-7 Date JASON - 7 assessed: 09/29/23 Feeling nervous, anxious, or on edge: 0 = Not at all Not being able to stop or control worryin = Not at all Worrying too much about different things: 0 = Not at all Trouble relaxin = Not at all Being so restless that it is hard to sit still: 0 = Not at all Becoming easily annoyed or irritable: 0 = Not at all Feeling afraid as if something awful might happen: 0 = Not at all Total JASON-7 score (0-4 normal; 5-9 mild; 10-14 moderate; 15-21 severe): 0 Source: Developed by Drs. Ernst Carpenter, Tierney Newsome, Ashwin Solano and colleagues, with an educational ana maría from [employer]. JASON-7 Assessment Billing JASON-7 Assessment Tool: JASON-7 Assessment 86076 Review of Systems Const Reports as per HPI Physical exam (Primary Care) Vital Signs: Last Vital Signs Pulse 97 09/29/23 13:34 BP 118/78 09/29/23 13:34 Pulse Ox 97 09/29/23 13:34 Oxygen Delivery Method Room Air 09/29/23 13:34 BMI result Body Mass Index 30.7 Tobacco/Smoking Status: Tobacco use Status Tobacco use date assessed 09/29/23 09/29/23 13:43 Patient Tobacco Use Status Never used Tobacco 09/29/23 13:34 e-Cigarette/Vaping Use Never Used 09/29/23 13:34 PHQ-9: PHQ-9 Score PHQ-9: Total score 0 09/29/23 13:56 Depression Screening Interpretation: Negative Thrive Assessment: Date of Thrive Assessment Date Thrive assessed 09/29/23 09/29/23 13:43 Currently or been in a relationship where the following occur: no concerns reported Const General: cooperative Nutritional Appearance: obese Orientation/consciousness: patient oriented x3 Resp Effort & Inspection: normal respiratory effort Auscultation: clear to auscultation bilaterally Cardio Rate: regular rate Rhythm: regular rhythm Heart sounds: S1 normal heart sound present and S2 normal heart sound present Neuro General: patient oriented x3 Extrem Other: bilat feet: + sensation with use of monofilament, elongated toenails, onychomycosis, dry crusting to distal aspect of bilat feet Psych Appearance: grossly normal Mental Status: mental status grossly normal Speech and movement: Normal speech and movement present Affect: normal affect Attitude: cooperative Thought process: Normal thought process present Thought content: Normal thought content present Insight: Good insight present (Psych) Judgement: Good judgement present (Psych) Assessment and Plan Assessment & Plan (1) Diabetes: Code(s): E11.9 - Type 2 diabetes mellitus without complications Plan: increase jardiance, follow up Plan The patient agreed to the use of a biomedical scientist for this encounter. Scribed for DEEPAK Rojas by Maude Latham biomedical scientist, on 09/29/2023 at 13:55 EST. Medications: Changed From empagliflozin (Jardiance) 10 mg PO DAILY 90 days 90 tabs 3RF To empagliflozin 25 mg PO DAILY 90 tabs 3RF 90 days Coding Level of Care Code Est Pt Level 3 (53786) Diagnoses Diabetes E11.9 Additional Codes JASON-7 Assessment Billing - JASON-7 Assessment Tool: JASON-7 Assessment [id number] ([id number])
== END 2023-09-29 14:49 | disposition home or self-care (01) ==
PROVIDERS: PCP Nurse Practitioner Family; Visit Provider Nurse Practitioner Family
DX: E11.9 Type 2 diabetes mellitus without complications (principal)
CPT/HCPCS: 99213

== ENCOUNTER 2024-01-09 13:54 | Outpatient (REF) | payer MEDICARE, MEDICAID, SELFPAY ==
[2024-01-09 16:23] LABS: Appearance Urine Clear; Color Urine Yellow; Glucose Urine UA >=1000 mg/dL (Negative); Leukocyte Esterase Urine Negative (Negative); Nitrite Urine Negative (Negative); PH 7.5 (5.0-9.0); Specific Gravity - Urine >= 1.030 (1.005-1.025); UMIC TRIGGER UACC YES; Urine Blood Negative (Negative); Urine Ketones Trace mg/dL (Negative); Urine Protein Negative (Neg-Trace)
[2024-01-09 16:49] LABS: Bacteria Urine None Seen (None Seen); Hyaline Casts Urine 0-2 /LPF (0-2); RBC Urine 0-2 /HPF (0-2); Squamous Epithelial Cell Urine 0-2 /HPF (0-2); WBC Urine 0-5 /HPF (0-5)
[2024-01-09 17:34] LABS: Creatinine Urine 100.55 mg/dL; Microalbum/Creatinine Ratio Ur 16.9 ug/mg cr (<30)
== END 2024-01-09 13:55 | disposition home or self-care (01) ==
LOC: HO.HMGCLDS 13:54
PROVIDERS: PCP Nurse Practitioner Family; Visit Provider Nurse Practitioner Family
DX: E11.9 Type 2 diabetes mellitus without complications (principal)
CPT/HCPCS: 81001; 82043; 82570

== ENCOUNTER 2024-01-12 12:51 | Outpatient (AMB) | payer MEDICARE, MEDICAID, SELFPAY ==
--- NOTE | 2024-01-12 12:52 | MHC.PC.OV ---
Vital Signs 01/12/24 12:56 Height 5 ft 8 in Weight 202 lb BMI 30.7 BP 120/80 Blood Pressure Location Rt brachial Position Sitting Pulse 100 Pulse Source Pulse Oximeter Pulse Oximetry (%) 97 Oxygen Delivery Method Room Air Intake Visit Reasons: Annual PE Over due Intake Note: Patient here for physical exam. colo: 2021 due 3-5yrs Allergies No Known Allergies [No Known Allergies*] Allergy (Verified 01/12/24 12:57) Medication List - Last Reconciled 01/12/24 by DEEPAK Crisostomo atorvastatin 10 mg PO BEDTIME blood sugar diagnostic (FreeStyle Lite Strips) Use to check blood sugar twice a day- once in am fasting and again at a random time during the day blood-glucose meter (FreeStyle Lite Meter kit) Use to check blood sugar twice a day- once in am fasting and again at a random time during the day cholecalciferol (vitamin D3) (Vitamin D3) 20 mcg (2 x 10 mcg (400 unit)) PO QPM 90 days empagliflozin 25 mg PO DAILY 90 days fluocinonide 0.05% 1 appl topical BID-QID PRN FreeStyle Amanda 2 [place] (flash glucose scanning reader) TID NS FreeStyle Amanda 2 Sensor (flash glucose sensor) TD NS ketoconazole 2% 1 appl topical 3XW 30 days lancets (FreeStyle Lancets) Use to check blood sugar twice a day- once in am fasting and again at a random time during the day levothyroxine 125 mcg PO QAM ondansetron 4 mg PO Q8H PRN pantoprazole 40 mg PO DAILY pioglitazone (Actos) 30 mg PO DAILY 90 days Tobacco use date assessed: 09/29/23 Dental Screening Dental Screen Date: 09/29/23 HPI Annual PE Over due HPI Details Pt is here for a PE. Will order labs. Colon screen is up to date. PSA is up to date. Pt is a diabetic, on a statin. A1C in office today is 7.2. Microalbumin is up to date. Denies polyuria, polydipsia, and neuropathy. Pt denies any signs and symptoms of hypoglycemia and does know how to correct it. Pt reports that he has not been checking his blood sugar often. Will start mounjaro 2.5mg. Pt will be following up with podiatry this week. Eye exam is scheduled. Pt reports intermittent chest discomfort. He states that this does not radiate. He is also describing GERD. Will do an EKG in office. Pts diet is not the best. reenforced importance of diet and watching acidic drinks and foods. [facility] Medical History Physical exam Hypothyroid Leg edema GERD (gastroesophageal reflux disease) Lung nodule Thyroid carcinoma Presbyesophagus Thyroid nodule Cervical adenopathy Surgical History H/O colonoscopy History of thyroidectomy History of appendectomy Family History Father HTN (hypertension) Diabetes mellitus Mother No problems noted. Maternal Grandmother HTN (hypertension) Brother No problems noted. Social History Housing: House Alcohol intake: never Patient Tobacco Use Status: Never used Tobacco e-Cigarette/Vaping Use: Never Used Second Hand Smoke Exposure: No service: No Current occupational status: employed Current occupation: [employer] /[employer] Current occupational exposures/hazards: No Cognitive needs: No Hearing needs: No Vision needs: No Questionnaire Thrive Questionnaire Date Thrive assessed: 09/29/23 JASON-7 AMB Questionnaire JASON-7 Date JASON - 7 assessed: 09/29/23 Source: Developed by Drs. Ernst Carpenter, Tierney Newsome, Ashwin Solano and colleagues, with an educational ana maría from [employer]. Review of Systems Const Denies chills and Denies fever(s) Eyes Denies blurry vision ENT Denies vertigo, Denies dizziness and Denies sore throat Card Reports chest pain, Denies diaphoresis, Denies dyspnea and Denies dyspnea on exertion Resp Denies cough, Denies dyspnea, Denies dyspnea on exertion and Denies wheezing GI Denies abdominal pain, Denies melena, Denies hematochezia, Denies constipation, Denies diarrhea and Denies loose stools Denies hematuria Musc Denies numbness and Denies tingling Skin/Breast Denies lesions Neuro Denies vertigo, Denies dizziness, Denies numbness and Denies tingling Psych Denies anxiety, Denies depression, Denies homicidal ideation, Denies suicidal ideation and Denies other (substance abuse) Aller/Immun Denies wheezing Physical exam (Primary Care) Vital Signs: Last Vital Signs Pulse 100 01/12/24 12:56 BP 120/80 01/12/24 12:56 Pulse Ox 97 01/12/24 12:56 Oxygen Delivery Method Room Air 01/12/24 12:56 BMI result Body Mass Index 30.7 Tobacco/Smoking Status: Tobacco use Status Tobacco use date assessed 09/29/23 01/12/24 12:53 Patient Tobacco Use Status Never used Tobacco 01/12/24 12:53 e-Cigarette/Vaping Use Never Used 01/12/24 12:53 Thrive Assessment: Date of Thrive Assessment Date Thrive assessed 09/29/23 01/12/24 12:53 Const General: cooperative Nutritional Appearance: well nourished Orientation/consciousness: patient oriented x3 HENMT Head: Yes normal to inspection, Yes normocephalic and Yes atraumatic Ears: TM's normal bilaterally Eyes General: appearance normal, both eyes and all related structures Alignment and Position: alignment normal and position normal Neck Neck: Yes normal visual inspection and Yes no lymphadenopathy Thyroid: Thyroid normal Resp Effort & Inspection: normal respiratory effort Auscultation: clear to auscultation bilaterally Cardio Rate: regular rate Rhythm: regular rhythm Heart sounds: S1 normal heart sound present, S2 normal heart sound present and no murmurs GI Palpation (GI): Soft to palpation and nontender Auscultation: normal bowel sounds Male General Exam: Yes normal external exam Penis: normal penis Scrotum: scrotum normal, testes descended bilaterally and no inguinal hernias Testes: no testicular mass Skin Rashes: no rashes Neuro General: patient oriented x3, moves all extremities, no focal motor deficits and deep tendon reflexes 2+ bilaterally Romberg Test: Negative Extrem Other: bilat feet: + sensation with use of monofilament, feet intact, elongated toenails, onychomycosis noted bilat Psych Appearance: grossly normal Mental Status: mental status grossly normal Speech and movement: Normal speech and movement present Affect: normal affect Attitude: cooperative Thought process: Normal thought process present Thought content: Normal thought content present Insight: Good insight present (Psych) Judgement: Good judgement present (Psych) Results AMB Hemoglobin A1c AMB Hemoglobin A1c 7.2 % Last Edit by PAT Rachel on 01/12/24 13:29 Results Reviewed Results Reviewed: Laboratory Last Values Hgb A1c (Clinic) 7.2 % (4.0-6.0) H 01/12/24 13:25 Assessment and Plan Assessment & Plan (1) Physical exam: Code(s): Z00.00 - Encounter for general adult medical examination without abnormal findings Plan: Labs ordered (2) Chest discomfort: Code(s): R07.89 - Other chest pain Plan: EKG done in office Plan The patient agreed to the use of a biomedical scientist for this encounter. Scribed for DEEPAK Rojas by Maude Latham biomedical scientist, on 01/12/2024 at 13:05 EST. Orders: Orders Complete Blood Count Auto Diff Today Z00.00 - Encounter for general adult medical examination without abnormal findings Comprehensive [place]. Panel Fast Today Z00.00 - Encounter for general adult medical examination without abnormal findings Lipid Panel Today Z00.00 - Encounter for general adult medical examination without abnormal findings AMB Hemoglobin A1c Today Z13.9 - Encounter for screening, unspecified TSH reflex Free T4 Today Z00.00 - Encounter for general adult medical examination without abnormal findings UA CC w/rflx Micro + Cult Today AMB EKG-In Office Today R07.89 - Other chest pain Medications: New tirzepatide (Mounjaro) 2.5 mg (0.5 mL) subcut QWEEK 2 mL 0RF 4 weeks Coding Level of Care Code Est Pt Prev Care 40-64y(10273) Diagnoses Physical exam Z00.00 Chest discomfort R07.89
[2024-01-12 12:56] VITALS: BP 120/80; PULSE 100; O2SAT 97; BMI 30.7
== END 2024-01-12 13:39 | disposition home or self-care (01) ==
PROVIDERS: PCP Nurse Practitioner Family; Visit Provider Nurse Practitioner Family
DX: Z00.00 Encounter for general adult medical examination without abnormal findings (principal); R07.89 Other chest pain; E11.9 Type 2 diabetes mellitus without complications
CPT/HCPCS: 83036; 93000; 99396

== ENCOUNTER 2024-04-20 12:07 | Outpatient (REF) | payer MEDICARE, MEDICAID, SELFPAY ==
[2024-04-20 13:12] LABS: MANUAL DIFF FLAG NO
[2024-04-20 13:17] LABS: Basophils Percent Auto 0.5 % (0-2); Eosinophils Absolute Auto 0.3 X10*3/uL (0.0-0.4); Eosinophils Percent Auto 4.6 % (0-4); Hematocrit 49.5 % (42.0-52.0); Hemoglobin 17.1 g/dl (14.0-18.0); Imm Gran Abs Auto 0.02 X10*3/uL (0.00-0.03); Imm Gran Pct Auto 0.3 % (0.0-0.4); Lymphocytes Absolute Auto 1.1 X10*3/uL (1.2-4.9); Lymphocytes Percent Auto 17.3 % (20-40); Mean Corpuscular HGB Conc 34.5 g/dl (31.0-36.0); Mean Corpuscular Hemoglobin 32.1 pg (27.0-33.0); Mean Platelet Volume 10.7 fL (9.4-12.4); Monocytes Absolute Auto 0.5 X10*3/uL (0.1-1.2); Monocytes Percent Auto 7.7 % (2-11); Neutrophils Absolute Auto 4.2 x10*3/uL (2.0-8.3); Neutrophils Percent Auto 69.6 % (45-73); Platelet Count 177 X10*3/uL (160-400); Red Blood Count 5.32 X10*6/uL (4.60-5.80); Red Cell Distribution Width 13.2 % (11.0-16.0); White Blood Count 6.1 X10*3/uL (4.8-10.8)
[2024-04-20 13:51] LABS: Alanine Aminotransferase 36 U/L (0-40); Albumin Level 4.6 g/dL (3.5-5.0); Alkaline Phosphatase 56 U/L (39-117); Anion Gap 11 (12-20); Aspartate Amino Transferase 24 U/L (5-37); Blood Urea Nitrogen 12 mg/dL (9-16); Calcium 9.6 mg/dL (8.4-10.2); Carbon Dioxide 30 mmol/L (22-29); Chloride 105 mmol/L (96-108); Cholesterol 115 mg/dL (<200); Estimated Glomerular Filt Rate > 60; Glucose Fasting 162 mg/dL (60-99); HDL Cholesterol 34 mg/dL (>40); LDL Cholesterol Calculated 67 mg/dL (<100); Potassium 3.6 mmol/L (3.3-5.1); Sodium 142 mmol/L (135-145); Total Protein 7.1 g/dL (6.5-8.0); Triglycerides 74 mg/dL (<150)
[2024-04-20 14:09] LABS: TSH reflex Free T4 2.71 uIU/mL (0.32-4.0)
== END 2024-04-20 12:08 | disposition home or self-care (01) ==
LOC: HO.HMGCLDS 12:07
PROVIDERS: PCP Nurse Practitioner Family; Visit Provider Nurse Practitioner Family
DX: Z00.00 Encounter for general adult medical examination without abnormal findings (principal)
CPT/HCPCS: 36415; 80053; 80061; 84443; 85025

== ENCOUNTER 2024-05-01 13:51 | Outpatient (AMB) | payer MEDICARE, MEDICAID, SELFPAY ==
[2024-05-01 13:53] VITALS: BP 138/82; PULSE 82; O2SAT 95; BMI 302.8
--- NOTE | 2024-05-01 13:53 | MHC.PC.OV ---
Vital Signs 05/01/24 13:53 Height 5 ft 8 in Weight 1992 lb BMI 302.8 BP 138/82 Blood Pressure Location Rt brachial Position Sitting Pulse 82 Pulse Source Pulse Oximeter Pulse Oximetry (%) 95 Intake Visit Reasons: DM f/u Intake Note: pt is here for diabetes follow up Voicer Required: No Allergies No Known Allergies [No Known Allergies*] Allergy (Verified 05/01/24 13:55) Medication List - Last Reconciled 05/01/24 by DEEPAK Crisostomo atorvastatin 10 mg PO BEDTIME blood sugar diagnostic (FreeStyle Lite Strips) Use to check blood sugar twice a day- once in am fasting and again at a random time during the day blood-glucose meter (FreeStyle Lite Meter kit) Use to check blood sugar twice a day- once in am fasting and again at a random time during the day cholecalciferol (vitamin D3) (Vitamin D3) 20 mcg (2 x 10 mcg (400 unit)) PO QPM 90 days empagliflozin 25 mg PO DAILY 90 days fluocinonide 0.05% 1 appl topical BID-QID PRN FreeStyle Amanda 2 [place] (flash glucose scanning reader) TID NS FreeStyle Amanda 2 Sensor (flash glucose sensor) TD NS ketoconazole 2% 1 appl topical 3XW 30 days lancets (FreeStyle Lancets) Use to check blood sugar twice a day- once in am fasting and again at a random time during the day levothyroxine 125 mcg PO QAM ondansetron 4 mg PO Q8H PRN pantoprazole 40 mg PO DAILY pioglitazone (Actos) 30 mg PO DAILY 90 days tirzepatide 5 mg (0.5 mL) subcut QWEEK 4 weeks Tobacco use date assessed: 09/29/23 Dental Screening Dental Screen Date: 09/29/23 HPI DM f/u HPI Details diabetes: on a statin. Knows the s/s of hypoglycemia and how to correct it. denies any polyuria, polydipsia, or neuropathy. 7.2 A1c today. Reports not taking his meds daily, i'll get back on them . Eye exam is up to date. 7.2 A1c today [facility] Medical History Physical exam Hypothyroid Leg edema GERD (gastroesophageal reflux disease) Lung nodule Thyroid carcinoma Presbyesophagus Thyroid nodule Cervical adenopathy Surgical History H/O colonoscopy History of thyroidectomy History of appendectomy Family History Father HTN (hypertension) Diabetes mellitus Mother No problems noted. Maternal Grandmother HTN (hypertension) Brother No problems noted. Social History Housing: House Alcohol intake: never Patient Tobacco Use Status: Never used Tobacco e-Cigarette/Vaping Use: Never Used Second Hand Smoke Exposure: No service: No Current occupational status: employed Current occupation: [employer] Current occupational exposures/hazards: No Cognitive needs: No Hearing needs: No Vision needs: No Questionnaire PHQ-9 Over the last 2 weeks, how often have you been bothered by any of the following problems? 1. Little interest or pleasure in doing things: not at all 2. Feeling down, depressed, or hopeless: not at all 3. Trouble falling or staying asleep, or sleeping too much: not at all 4. Feeling tired or having little energy: not at all 5. Poor appetite or overeating: not at all 6. Feeling bad about yourself - or that you are a failure or have let yourself or your family down: not at all 7. Trouble concentrating on things, such as reading the newspaper or watching television: not at all 8. Moving or speaking so slowly that other people could have noticed. Or the opposite - being so fidgety or restless that you have been moving around a lot more than usual: not at all 9. Thoughts that you would be better off or of hurting yourself in some way: not at all Total score: 0 Depression Screening Interpretation: Negative Depression Screening Done: Yes 95828 - PHQ-9 Billing: Yes Source: Developed by Drs. Ernst Carpenter, Tierney Newsome, Ashwin Solano and colleagues, with an educational ana maría from [employer]. Thrive Questionnaire Date Thrive assessed: 05/01/24 I am a: Patient What is your living situation today?: I have a steady place to live Within the past 12 months, did the food you bought not last and you didn't have the money to get more?: Never true Within the past 12 months, did you worry whether your food would run out before you got money to buy more?: Never true Do you have trouble paying for medicines?: No Do you have trouble getting transportation to medical appointments?: No Do you have trouble paying your heating and electricity bill?: No Do you have trouble taking care of your child, family member or friend?: No Do you have trouble with day-to-day activities such as bathing, preparing meals, shopping, managing finances, etc.?: No Are you currently unemployed and looking for a job?: Yes Are you interested in more education?: No Please select the resources that you would like help with: None Currently or been in a relationship where the following occur: No concerns reported THRIVE Score: 0 AUDIT C Alcohol Use Questionnaire (AUDIT-C) 1. How often do you have a drink containing alcohol?: Never 3. How often do you have six or more drinks on one occasion?: Never Total Score: 0 Score Reviewed/Action Taken: Yes JASON-7 AMB Questionnaire JASON-7 Date JASON - 7 assessed: 05/01/24 Feeling nervous, anxious, or on edge: 0 = Not at all Not being able to stop or control worryin = Not at all Worrying too much about different things: 0 = Not at all Trouble relaxin = Not at all Being so restless that it is hard to sit still: 0 = Not at all Becoming easily annoyed or irritable: 0 = Not at all Feeling afraid as if something awful might happen: 0 = Not at all Total JASON-7 score (0-4 normal; 5-9 mild; 10-14 moderate; 15-21 severe): 0 Source: Developed by Drs. Ernst Carpneter, Tierney Newsome, Ashwin Solano and colleagues, with an educational ana maría from [employer]. JASON-7 Assessment Billing JASON-7 Assessment Tool: JASON-7 Assessment 97910 Physical exam (Primary Care) Vital Signs: Last Vital Signs Pulse 82 05/01/24 13:53 BP 138/82 05/01/24 13:53 Pulse Ox 95 05/01/24 13:53 BMI result Body Mass Index 302.8 Tobacco/Smoking Status: Tobacco use Status Tobacco use date assessed 09/29/23 05/01/24 13:56 Patient Tobacco Use Status Never used Tobacco 05/01/24 13:56 e-Cigarette/Vaping Use Never Used 05/01/24 13:56 PHQ-9: PHQ-9 Score PHQ-9: Total score 0 05/01/24 16:12 Depression Screening Interpretation: Negative Thrive Assessment: Date of Thrive Assessment Date Thrive assessed 05/01/24 05/01/24 13:56 Currently or been in a relationship where the following occur: No concerns reported Const General: cooperative Resp Effort & Inspection: normal respiratory effort Auscultation: clear to auscultation bilaterally Cardio Rate: regular rate Rhythm: regular rhythm Heart sounds: S1 normal heart sound present and S2 normal heart sound present Extrem Other: feet dry appearing, onychomycosis noted bilat, + sensation with use of monofilament. Psych Appearance: grossly normal Speech and movement: Normal speech and movement present Affect: normal affect Attitude: cooperative Thought process: Normal thought process present Thought content: Normal thought content present Insight: Good insight present (Psych) Judgement: Good judgement present (Psych) Assessment and Plan Assessment & Plan (1) Diabetes: Code(s): E11.9 - Type 2 diabetes mellitus without complications Plan: encouraged to take all meds as prescribed. Will increase mounjaro, starting losartan for renal protection Medications: New losartan 25 mg PO DAILY 90 tabs 0RF Changed From tirzepatide (Mounjaro) 2.5 mg (0.5 mL) subcut QWEEK 4 weeks 2 mL 0RF To tirzepatide 5 mg (0.5 mL) subcut QWEEK 2 mL 0RF 4 weeks Coding Level of Care Code Est Pt Level 3 (50635) Diagnoses Diabetes E11.9 Additional Codes JASON-7 Assessment Billing - JASON-7 Assessment Tool: JASON-7 Assessment [id number] ([id number])
== END 2024-05-01 14:47 | disposition home or self-care (01) ==
PROVIDERS: PCP Nurse Practitioner Family; Visit Provider Nurse Practitioner Family
DX: E11.9 Type 2 diabetes mellitus without complications (principal)
CPT/HCPCS: 83036; 99213

== ENCOUNTER 2024-08-16 10:08 | Outpatient (AMB) | payer MEDICARE, MEDICAID, SELFPAY ==
[2024-08-16 10:16] VITALS: BP 120/78; PULSE 104; O2SAT 95; BMI 30.7
--- NOTE | 2024-08-16 10:16 | A.OFFPC_ITS ---
Vital Signs 08/16/24 10:16 Height 5 ft 8 in Weight 202 lb 2 oz BMI 30.7 BP 120/78 Blood Pressure Location Lt brachial Position Sitting Pulse 104 H Pulse Source Pulse Oximeter Pulse Oximetry (%) 95 Oxygen Delivery Method Room Air Intake Visit Reasons: Follow UP Allergies No Known Allergies [No Known Allergies*] Allergy (Verified 08/16/24 10:18) Tobacco use date assessed: 08/16/24 Dental Screening Dental Screen Date: 08/16/24 Did you have a dental visit in the last 12 months?: No Did you have a dental problem in the last 6 months where you did not have access to dental care?: No Was dental information given to patient?: No HPI Follow UP HPI Details History of Present Illness The patient is a 54-year-old male presenting with a follow-up visit for diabetes management. He reports keeping his eye examinations up to date. He experiences intermittent neuropathy in bilateral extremities, which suggests a possible complication of diabetes. The patient has not been monitoring his blood glucose levels regularly. Previous management includes ARB and statin therapy, indicating concurrent management of hypertension and hyperlipidemia. He understands the symptoms associated with hyperglycemia and corrective measures. He is due for laboratory testing, including A1c monitoring. Social History Review of Systems - Endocrine: Reports no recent monitorin g of blood glucose levels. denies any polyuria, polydipsia, fevers, chills, n/v. Physical Exam - Cardiac- S1 and S2 heart sounds presen t. - Respiratory- Lungs clear to auscultati on. - Neurological- Positive sensation with the use of monofilament test on feet. Results Plan - Diabetes Mellitus: Advise regular rehana toring of blood glucose levels. Order A1c testing. - Intermittent Neuropathy: Referral to p odiatry for further evaluation and management due to previous podiatry discontinuation. - Hyperlipidemia and Hypertension: Anamaria nue current statin and ARB therapy. Patient was informed and verbally consented to the use of an ambient scribe for clinic note documentation during this visit. Discussion Notes I emphasized the importance of regular blood glucose monitoring to manage and assess the status of diabetes. I explained the significance of recognizing and managing hyperglycemic symptoms and how it impacts overall health. 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 The patient is aware of the importance of follow-up and essential laboratory work, including A1c, to evaluate current diabetes control. Patient Instructions - Regularly monitor blood glucose levels as discussed. - Follow through with laboratory testing , including A1c. - Attend podiatry appointment for furthe r evaluation. - Continue taking prescribed medications : ARB and statin. - Be attentive to symptoms of hyperglyce yasmin and follow corrective measures learned. [facility] Medical History Physical exam Hypothyroid Leg edema GERD (gastroesophageal reflux disease) Lung nodule Thyroid carcinoma Presbyesophagus Thyroid nodule Cervical adenopathy Surgical History H/O colonoscopy History of thyroidectomy History of appendectomy Family History Father HTN (hypertension) Diabetes mellitus Mother No problems noted. Maternal Grandmother HTN (hypertension) Brother No problems noted. Social History Housing: House Alcohol intake: never Patient Tobacco Use Status: Never used Tobacco e-Cigarette/Vaping Use: Never Used Second Hand Smoke Exposure: No service: No Current occupational status: employed Current occupation: [employer] Current occupational exposures/hazards: No Cognitive needs: No Hearing needs: No Vision needs: No Questionnaire Thrive Questionnaire Date Thrive assessed: 08/16/24 I am a: Patient What is your living situation today?: I have a steady place to live Within the past 12 months, did the food you bought not last and you didn't have the money to get more?: Never true Within the past 12 months, did you worry whether your food would run out before you got money to buy more?: Never true Do you have trouble paying for medicines?: No Do you have trouble getting transportation to medical appointments?: No Do you have trouble paying your heating and electricity bill?: No Do you have trouble taking care of your child, family member or friend?: No Do you have trouble with day-to-day activities such as bathing, preparing meals, shopping, managing finances, etc.?: No Are you currently unemployed and looking for a job?: Yes Are you interested in more education?: No Please select the resources that you would like help with: None Currently or been in a relationship where the following occur: No concerns reported THRIVE Score: 0 AUDIT C Alcohol Use Questionnaire (AUDIT-C) 1. How often do you have a drink containing alcohol?: Never 3. How often do you have six or more drinks on one occasion?: Never Total Score: 0 Score Reviewed/Action Taken: Yes JASON-7 AMB Questionnaire JASON-7 Date JASON - 7 assessed: 05/01/24 Source: Developed by Drs. Ernst Carpenter, Tierney Newsome, Ashwin Solano and colleagues, with an educational ana maría from [employer]. Physical exam (Primary Care) Vital Signs: Last Vital Signs Pulse 104 H 08/16/24 10:16 BP 120/78 08/16/24 10:16 Pulse Ox 95 08/16/24 10:16 Oxygen Delivery Method Room Air 08/16/24 10:16 BMI result Body Mass Index 30.7 Tobacco/Smoking Status: Tobacco use Status Tobacco use date assessed 08/16/24 08/16/24 10:19 Patient Tobacco Use Status Never used Tobacco 08/16/24 10:17 e-Cigarette/Vaping Use Never Used 08/16/24 10:17 Thrive Assessment: Date of Thrive Assessment Date Thrive assessed 08/16/24 08/16/24 10:19 Currently or been in a relationship where the following occur: No concerns reported Coding Level of Care Code Est Pt Level 3 (25661) Diagnoses Diabetes E11.9 Screening PSA (prostate specific antigen) Z12.5 Overgrown toenails L60.2 Onychomycosis B35.1 Assessment & Plan Assessment & Plan (1) Diabetes: Code(s): E11.9 - Type 2 diabetes mellitus without complications Category: Medical (2) Screening PSA (prostate specific antigen): Code(s): Z12.5 - Encounter for screening for malignant neoplasm of prostate Category: Medical (3) Overgrown toenails: Code(s): L60.2 - Onychogryphosis Category: Medical (4) Onychomycosis: Code(s): B35.1 - Tinea unguium Category: Medical Plan . Orders: Orders Comprehensive [place]. Panel Fast Today E11.9 - Type 2 diabetes mellitus without complications UA CC w/rflx Micro + Cult Today E11.9 - Type 2 diabetes mellitus without complications Lipid Panel Today E11.9 - Type 2 diabetes mellitus without complications Prostate Specific Antigen Scr Today Z12.5 - Encounter for screening for malignant neoplasm of prostate Hemoglobin A1c Today E11.9 - Type 2 diabetes mellitus without complications Complete Blood Count Auto Diff Today E11.9 - Type 2 diabetes mellitus without complications TSH reflex Free T4 Today E11.9 - Type 2 diabetes mellitus without complications Referrals Podiatry Referral B35.1 - Tinea unguium, E11.9 - Type 2 diabetes mellitus without complications, L60.2 - Onychogryphosis
== END 2024-08-16 10:52 | disposition home or self-care (01) ==
PROVIDERS: PCP Nurse Practitioner Family; Visit Provider Nurse Practitioner Family
DX: E11.9 Type 2 diabetes mellitus without complications (principal); Z12.5 Encounter for screening for malignant neoplasm of prostate; L60.2 Onychogryphosis; B35.1 Tinea unguium; Z23 Encounter for immunization

== ENCOUNTER → 2024-08-16 10:08 | Outpatient (BNVA) | payer MEDICARE, MEDICAID, SELFPAY | PROVIDERS: PCP Nurse Practitioner Family; Visit Provider Nurse Practitioner Family | DX: Z23 Encounter for immunization (principal); E11.9 Type 2 diabetes mellitus without complications; L60.2 Onychogryphosis; B35.1 Tinea unguium | CPT/HCPCS: 90471; 90656; 99212 ==

== ENCOUNTER 2024-11-02 11:33 | Outpatient (REF) | payer MEDICARE, MEDICAID, SELFPAY ==
--- OUTSIDE RECORDS SUMMARY | 2024-11-02 12:37 | XMS_ITS | Continuity of Care Document ---
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 Name Role Phone Pillo AVALOS, Lukasz Richard Primary Care Physician [phone] Encounter [facility] [id number] Date(s): 10/17/24 - 10/17/[address] [address]- Discharge Disposition: A-D/C Home Attending Physician: Sagar Gupta MD Admitting Physician: Sagar Gupta MD Referring Physician: Not on Staff, Referring MD Encounter Type: Disch ES Allergies, Adverse Reactions, Alerts No Known Medication Allergies Medications atorvastatin 10 mg oral tablet 1 tablet = 10 mg, By Mouth, Daily at bedtime, # 30 tablet, 0 Refills, Maintenance, 02/08/24 7:29:00 PM EDT, Partial fill upon patient request if the prescription is for a schedule II opioid drug. Start Date: 02/08/24 Status: Ordered Quantity: 30.0 Unit: tablet Repeat number: 1 bisacodyl 10 mg rectal suppository 1 supp = 10 mg, Rectally, Daily, PRN Constipation, if no bowel movement for more than 48 hours., # 30 supp, 0 Refills, Maintenance, 02/11/24 2:56:00 PM EDT, Suppository, [facility] #[id number], Partial fill upon patient request if the prescription is for a schedule II opioid drug., 173, cm, 02/11/24 11:25:00 EDT, Height, 88.5, kg, 02/08/24 19:13:00 EDT, Dry Weight Start Date: 02/11/24 Status: Ordered Quantity: 30.0 Unit: supp Repeat number: 1 Citracal Maximum + Vitamin D Tablet 2 tablet = 630 mg, By Mouth, 2 times a day, 0 Refills, Maintenance, 08/14/15 9:50:40 AM EST, Tablet Start Date: 08/14/15 Status: Ordered Repeat number: 1 Fleet Enema 19 gm-7 gm rectal enema 1 each, Rectally, Once, PRN for constipation, # 133 mL, 1 Refills, Soft Stop, 07/22/24 10:16:00 PM EST, Enema, [facility] #[id number], Partial fill upon patient request if the prescription is for a schedule II opioid drug., 1 each Rectally Once,PRN:for constipation, 170, cm, 07/22/24 20:23:00 EST, Height, 94, kg, 07/22/24 20:23:00 EST, Dry Weight Start Date: 07/22/24 Status: Ordered Quantity: 133.0 Unit: mL Repeat number: 2 Jardiance 25 mg oral tablet 1 tablet = 25 mg, By Mouth, Daily in AM, # 30 tablet, 0 Refills, Maintenance, 01/31/24 4:25:00 PM EDT, Tablet, Partial fill upon patient request if the prescription is for a schedule II opioid drug. Start Date: 01/31/24 Status: Ordered Quantity: 30.0 Unit: tablet Repeat number: 1 lactulose 10 gm/15 ml oral syrup 15 mL = 10 Gm, By Mouth, Daily, 15-30 cc every 12 hours as needed for constipation, # 480 mL, 0 Refills, Acute 10/18/24 4:06:00 PM EST, 10/17/24 4:06:00 PM EST, [facility] #[id number], Partial fill upon patient request if the prescription is for a schedule II opioid drug., 15 mL By Mouth Daily,Instr:15-30 cc every 12 hours as needed for constipation, 175, cm, 10/17/24 10:28:00 EST, Height, 98.7,kg, 10/17/24 10:28:00 EST, Dry Weight Start Date: 10/17/24 Stop Date: 10/18/24 Status: Ordered Quantity: 480.0 Unit: mL Repeat number: 1 levothyroxine 0.137 mg oral tablet 1 tablet = 137 mcg, By Mouth, Daily, # 30 tablet, 3 Refills, Maintenance, 08/13/15 10:35:35 AM EST, Tablet Start Date: 08/13/15 Status: Ordered Quantity: 30.0 Unit: tablet Repeat number: 4 MiraLax oral powder for reconstitution = 17 Gm, By Mouth, Daily, dissolve in 4 to 8 oz of beverage; Hold for watery stool., # 510 Gm, 0 Refills, Maintenance, 02/11/24 2:56:00 PM EDT, REC Powder, [facility] #[id number], Partial fill upon patient request if the prescription is for a schedule II opioid drug., 17 Gm By Mouth Daily,Instr:d issolve in 4 to 8 oz of beverage; Hold for watery stool., 173, cm, 02/11/24 11:25:00 EDT, Height, 88.5, kg, 02/08/24 19:13:00 EDT, Dry Weight Start Date: 02/11/24 Status: Ordered Quantity: 510.0 Unit: g Repeat number: 1 pantoprazole 40 mg oral delayed release tablet 1 tablet = 40 mg, By Mouth, Daily, # 30 tablet, 0 Refills, Maintenance, 02/08/24 7:30:00 PM EDT, EC Tablet Start Date: 02/08/24 Status: Ordered Quantity: 30.0 Unit: tablet Repeat number: 1 pioglitazone 30 mg oral tablet 1 tablet = 30 mg, By Mouth, Daily, # 90 tablet, 0 Refills, Maintenance, 02/11/24 2:55:00 PM EDT, Tablet, Partial fill upon patient request if the prescription is for a schedule II opioid drug. Start Date: 02/11/24 Status: Ordered Quantity: 90.0 Unit: tablet Repeat number: 1 Reglan 5 mg oral tablet 1 tablet = 5 mg, By Mouth, 3 times a day before meals, PRN Nausea & Vomiting, not to exceed 12 weeks duration, 30 minutes before meals and at bedtime, # 20 tablet, 0 Refills, Maintenance, 02/11/24 2:54:00 PM EDT, Tablet, [facility] #[id number], Partial fill upon patient request if the prescription is for a schedule II opioid drug., 173, cm, 02/11/24 11:25:00 EDT, Height, 88.5, kg, 02/07/2419:13:00 EDT, Dry Weight Start Date: 02/11/24 Status: Ordered Quantity: 20.0 Unit: tablet Repeat number: 1 Problem List Condition Confirmation Course Effective Dates Status Health St atus Informant Obese class I Confirmed Active Results Radiology Reports * Exam Date Time Procedure Performing Provider Status 10/17/24 2:[address] Abd/Pelvis W/ IV Contrast Only Moses Gomez; Auth (Verified) Notes: (CT Abd/Pelvis W/ IV Contrast Only) Reason For Exam: Pain RESULT: CT Abd/Pelvis W/ IV Contrast Only CT Abd/Pelvis W/ IV Contrast Only Hx of Present Illness: Pt has had NV and abd distentiion intermittent Pt denies any fevers. Pt did have a small soft stool today and admits to taking miralax; Reason: Pain; Clinical Question(s): Diverticulitis TECHNIQUE: Spiral CT through the abdomen and pelvis with IV contrast formatted in 3 planes. 100 cc of Isovue 300 was administered intravenously. This study was performed without oral contrast. Weight-based protocol using automatic tube modulation was used to optimize exposure parameters. CTDIvol Body: 16.97 mGy, DLP Body: 903 mGy*cm. COMPARISON: CT abdomen and pelvis from 02/08/2024 and 09/30/2020 FINDINGS: Client Support Coordinator View Findings, Lines and Tubes: None. Visualized Chest: Few small nodules in the lung bases are unchanged from 202 and likely benign. Diaphragm: Normal. Liver: Diffuse low-attenuation throughout the liver parenchyma consistent with hepatic steatosis. No evidence of mass. Gallbladder: No CT evidence of gallbladder pathology. Bile ducts: No biliary ductal dilation. Spleen: Normal size. 18 mm faint hypodensity in the spleen (2:34), slightly increased from 13 mm [id number], but favored to be benign given slow growth. Pancreas: Normal. Adrenal glands: Normal. Kidneys and ureters: No hydronephrosis, stones, or suspicious masses. Simple appearing renal cysts and hypodensities that are too small to characterize are noted, requiring no dedicated follow up. Bladder: Mild circumferential wall thickening of the bladder with subsubmucosal fat deposition, favored to be chronic. Reproductive organs: Prostatomegaly. Stomach, small bowel, and large bowel: Small sliding hiatal hernia. Moderate colonic stool. No bowel obstruction. Colonic diverticulosis without evidence of acute diverticulitis. Appendix: Not seen, but no evidence of appendicitis. Peritoneum and retroperitoneum: No ascites or pneumoperitoneum. No omental or mesenteric lesions. Lymph nodes: No enlarged lymph nodes. Blood vessels: Normal. No aneurysm. No evidence of venous thrombosis. Abdominal and pelvic wall: Small fat-containing umbilical hernia. Bones: No acute abnormality. IMPRESSION: No acute abnormality within the abdomen or pelvis. Colonic diverticulosis without evidence of acute diverticulitis. Mild hepatic steatosis. WSN: [id number] Ordering Physician: Sagar Gupta Dictated By: Edgar Nathan MD Dictated Date/Time: 10/17/24 2:59 pm Reviewed By: Edgar Nathan MD Signed By: Edgar Nathan MD Signed Date/Time: 10/17/24 2:59 pm Transcribed By: NIMISHA Transcribed Date/Time: 10/17/24 2:44 pm Vital Signs Most recent to oldest [Reference Range]: 1 2 Height 175 cm (10/17/24: PM) 175 cm (10/17/24 10:28 AM) Weight 98.7 kg (10/17/24: PM) 98.7 kg (10/17/24 10: AM) Oxygen Saturation [94-100 %] 96 % (10/17/24: PM) 96 % (10/17/24 10:28 AM) Pulse Rate [55-90 bpm] 89 bpm (10/17/24:13 PM) 76 bpm (10/17/24 10:28 AM) Body Mass Index [18.5-24.99 kg/m2] 32.23 kg/m2 *>HHI* (10/17/24 4:13 PM) Blood Pressure [90-138/55-84 mm Hg] 124/ 75mm Hg (10/17/24 4:13 PM) 114/75mm Hg (10/17/24 10:28 AM) Respiratory Rate [16-30 br/min] 18 br/mi n (10/17/24:13 PM) 16 br/min (10/17/24 10:28 AM) Temperature [96.8-100.4 DegF] 97.6 DegF (10/17/24 10:28 AM) Mode of Delivery (Oxygen) Room air (10/17/24 4:13 PM) Room air (10/17/24 10:28 AM) Blood pressure sites Arm, right (10/17/24 4:13 PM) Arm, left (10/17/24 10:28 AM) Temperature Route Temporal (10/17/24 10:28 AM) Dry Weight 98.7 kg (10/17/24 4:13 PM) 98.7 kg (10/17/24 10:28 AM) Weight Obtained Via Standing scale (10/17/24 10:28 AM) Dry Weight Obtained Via Standing scale (10/17/24 10:28 AM) Social History Social History Type Response Smoking Status Never (less than 100 in lifetime) entered on: 02/08/24 Sex Sex Representation Male (finding) Note * Candy MORALES, Sagar Echavarria: PERFORM Event Display: Patient Education Leaflets Authored Date: [id number] Constipation (Adult) ?? [id number] Constipation (Adult) Constipation means that you have less frequent bowel movements (generally fewer than 3 bowel movements a week) than usual. Stools often become very hard and difficult to pass. Constipation is very common. At some point in life, it affects almost everyone. Since everyone's bowel habits are different, what is constipation to 1 person may not be to another. Your healthcare provider may do tests to diagnose constipation. It depends on what??they??find when evaluating you. Symptoms of constipation include: ??? Abdominal pain ??? Bloating ??? Straining during bowel movements ??? Hard, lumpy stools ??? Painful bowel movements ??? Itching, swelling, bleeding, or pain around the anus ??? A feeling that youhave not emptied your bowels completely Causes Constipation can have many causes. These include: ??? Diet low in fiber ??? Not drinking enough liquids ??? Lack of exercise or physical activity (especially true for older adults) ??? Changes in lifestyle or daily routine, including , aging, work, and travel ??? Frequent use or misuse oflaxatives ??? Ignoring the urge to have a bowel movement or delaying it until later ??? Medicines, such as certain prescription pain medicines, iron supplements, antacids, certain antidepressants, and calcium supplements ??? Too much dairy ??? Conditions or diseases like irritable bowel syndrome, bowel obstructions, stroke, diabetes, thyroid disease, Parkinson disease, hemorrhoids, and colon cancer ?? Complications Possible complications of constipation can include: ??? Hemorrhoids ??? Rectal bleeding from hemorrhoids or anal fissures??(skin tears around the anus) ??? Hernias ??? Chronic constipation ??? Fecal impaction, a severe form of constipation in which a large amount of hard stool is in your rectum that you can't pass ??? Bowel obstruction or perforation ??? Rectal prolapse (a portion of rectum slipped out of the anal opening) ?? Home care All treatment should be done after talking with your healthcare provider. This is especially true if you have another medical problem, are taking prescription medicines, or are an older adult. Treatment most often involves lifestyle changes. You may also need medicines. Your healthcare provider will tell you which will work best for you. Follow the advice below to help prevent this problem in thefuture. ?? Lifestyle changes These lifestyle changes can help prevent constipation: ??? Diet. Eat a high- fiber diet, with fresh fruit and vegetables, and reduce dairy intake, meats, and processed foods ??? Fluids. It's importantto get enough fluids each day. Drink plenty of water when you eat more fiber. If you are on a diet that limits the amount of fluid you can have, talk about this with your healthcare provider. ??? Regular exercise. Check with your healthcare provider first. ?? Medicines Take any medicines as directed. Some laxatives are safe to use only now and then. Others can be taken regularly. While laxatives don't cause bowel dependence, they are treating the symptoms. So your constipation may return if you don't make other changes. Talk with your healthcare provider or pharmacist if you have questions. Prescription pain medicines can cause constipation. If you are taking this kind of medicine, ask your healthcare provider if you should also take a stool softener. Medicines you may take to treat constipation include: ??? Fiber supplements ??? Stool softeners ???Laxatives ??? Enemas ??? Rectal suppositories ?? Follow-up care Follow up with your healthcare provider if symptoms don't get better in the next few days. You may need to have more tests or see a specialist. ?? Call 911 Call 911 if any of these occur: ??? Trouble breathing ??? Stiff, rigid abdomen that is severely painful to touch ??? Large amounts of blood in the stool ??? Confusion ??? Fainting or loss of consciousness ??? Rapid heart rate ??? Chest pain ?? When to get medical advice Call your healthcare provider right away if any of these occur: ??? Fever of 100.4??F (38??C) or higher, or as directed by your healthcare provider ??? Failure to resume normal bowel movements ??? Pain in your abdomen or back gets worse ??? Nausea or vomiting ??? Swelling in your abdomen ??? Small amount of blood in the stool ??? Black, tarry stool ??? Weight loss without trying ??? Weakness ?? Last Reviewed Date: 2024 ?? 6485-8220 [employer] All rights reserved. This information is not intended as a substitute for professional medical care. Always follow your healthcare professional's instructions. ?? Patient Care team information Care Team Personnel Name: Pillo AVALOS , Lukasz Richard Position: Reference Physician Member Role: PCP Address: [address] [place] [address] Telecom: Name: Neno Aparicio RN Position: [place] RN Member Role: Primary Care Nurse Name: Enrique Ross RN Position: [facility] RN Member Role: Primary Care Nurse Care Team Related Persons Name: NGUYEN RIVERA Name: OVIDIO RIVERA Name: VANNESSA[facility] Insurance Providers Guarantor name: SUMEET ROSSACHE Health Plan Information #: 1 Payer: MEDICARE PART B OUTPT Member Number: [id number] Policy Number: NA Group Number: NA Health Plan Information #: 2 Payer: [employer] Member Number: [id number] Policy Number: NA Group Number: NA
[2024-11-02 13:20] LABS: MANUAL DIFF FLAG NO
[2024-11-02 13:30] LABS: Basophils Percent Auto 0.4 % (0-2); Eosinophils Absolute Auto 0.5 X10*3/uL (0.0-0.4); Eosinophils Percent Auto 6.3 % (0-4); Hematocrit 50.6 % (42.0-52.0); Hemoglobin 17.3 g/dl (14.0-18.0); Imm Gran Abs Auto 0.03 X10*3/uL (0.00-0.03); Imm Gran Pct Auto 0.4 % (0.0-0.4); Lymphocytes Absolute Auto 1.3 X10*3/uL (1.2-4.9); Mean Corpuscular HGB Conc 34.2 g/dl (31.0-36.0); Mean Corpuscular Volume 93.7 fL (80.0-98.0); Mean Platelet Volume 10.3 fL (9.4-12.4); Monocytes Absolute Auto 0.6 X10*3/uL (0.1-1.2); Monocytes Percent Auto 8.1 % (2-11); Neutrophils Absolute Auto 4.8 x10*3/uL (2.0-8.3); Neutrophils Percent Auto 66.8 % (45-73); Platelet Count 197 X10*3/uL (160-400); Red Cell Distribution Width 13.3 % (11.0-16.0); White Blood Count 7.2 X10*3/uL (4.8-10.8)
[2024-11-02 13:50] LABS: Estimated Average Glucose 140 mg/dL; Hemoglobin A1C 206.3602 umol/L; Hemoglobin A1c % 6.5 % (<6.0); Total Hemoglobin (HGBA1C) 4309.2669 umol/L
[2024-11-02 13:56] LABS: Alanine Aminotransferase 52 U/L (0-40); Albumin Level 4.5 g/dL (3.5-5.0); Alkaline Phosphatase 61 U/L (39-117); Anion Gap 12 (12-20); Aspartate Amino Transferase 31 U/L (5-37); Bilirubin Total 1.1 mg/dL (0.0-1.0); Blood Urea Nitrogen 14 mg/dL (9-16); Calcium 9.4 mg/dL (8.4-10.2); Carbon Dioxide 26 mmol/L (22-29); Chloride 104 mmol/L (96-108); Cholesterol 142 mg/dL (<200); Estimated Glomerular Filt Rate > 60; Glucose Fasting 135 mg/dL (60-99); HDL Cholesterol 33 mg/dL (>40); LDL Cholesterol Calculated 92 mg/dL (<100); Sodium 138 mmol/L (135-145); Total Protein 7.5 g/dL (6.5-8.0); Triglycerides 87 mg/dL (<150)
[2024-11-02 14:06] LABS: Prostate Specific Antigen Scr 1.25 ng/mL (<0.05-4.0)
[2024-11-02 14:18] LABS: TSH reflex Free T4 7.12 uIU/mL (0.32-4.0)
[2024-11-02 15:03] LABS: Free T4 (Free Thyroxine) 0.89 ng/dL (0.71-1.85)
== END 2024-11-02 11:34 | disposition home or self-care (01) ==
LOC: HO.HMGCLDS 11:33
PROVIDERS: PCP Nurse Practitioner Family; Visit Provider Nurse Practitioner Family
DX: E11.9 Type 2 diabetes mellitus without complications (principal); Z12.5 Encounter for screening for malignant neoplasm of prostate
CPT/HCPCS: 36415; 80053; 80061; 83036; 84153; 84439; 84443; 85025

== ENCOUNTER 2025-01-15 10:04 | Outpatient (AMB) | payer MEDICARE, MEDICAID, SELFPAY ==
[2025-01-15 10:09] VITALS: BP 122/80; PULSE 90; O2SAT 95; BMI 31.4
--- NOTE | 2025-01-15 10:09 | A.OFFPC_ITS ---
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 Required: No Accompanied by: Self / Same As Patient Allergies No Known Allergies [No Known Allergies*] Allergy (Verified 01/15/25 10:09) Medication List - Last Reconciled 01/15/25 by DEEPAK Crisostomo atorvastatin 10 mg PO BEDTIME blood sugar diagnostic (FreeStyle Lite Strips) Use to check blood sugar twice a day- once in am fasting and again at a random time during the day blood-glucose meter (FreeStyle Lite Meter kit) Use to check blood sugar twice a day- once in am fasting and again at a random time during the day cholecalciferol (vitamin D3) (Vitamin D3) 20 mcg (2 x 10 mcg (400 unit)) PO QPM 90 days empagliflozin (Jardiance) 25 mg PO DAILY fluocinolone 0.01% 1 appl topical BID FreeStyle Amanda 2 Carrier (flash glucose scanning reader) TID NS FreeStyle Amanda 2 Sensor (flash glucose sensor) TD NS ketoconazole 2% 1 appl topical 3XW 30 days lancets (FreeStyle Lancets) Use to check blood sugar twice a day- once in am fasting and again at a random time during the day levothyroxine 125 mcg PO QAM losartan 25 mg PO DAILY ondansetron 4 mg PO Q8H PRN pantoprazole 40 mg PO DAILY pioglitazone (Actos) 30 mg PO DAILY 90 days tirzepatide 5 mg (0.5 mL) subcut QWEEK 4 weeks Tobacco use date assessed: 01/15/25 Dental Screening Dental Screen Date: 01/15/25 Did you have a dental visit in the last 12 months?: Yes Did you have a dental problem in the last 6 months where you did not have access to dental care?: No Was dental information given to patient?: Patient has dentist HPI Annual PE HPI Details History of Present Illness The patient is a 55-year-old male presenting with follow-up for Type 2 Diabetes Mellitus and a routine physical examination. His diabetes management appears effective, with an A1c level maintained at 6.8. He confirms that his last retinal examination is current, ensuring monitoring for any diabetic retinopathy. The patient denies experiencing chest, respiratory, abdominal, or urinary symptoms, suggesting stability and effective management of these potential diabetic complications. Additionally, the patient has noted longstanding onychomycosis with discoloration and elongation of toenails. This skin condition is pertinent given his diabetic status, warranting strict foot hygiene and appropriate podiatry care to mitigate risk factors associated with diabetic foot complications. Health Maintenance - Colonoscopy is up to date. - Planned referral for upcoming colonosc opy. - PSA test is current. - Regular eye examinations for diabetic retinopathy monitoring. - Discussion of the importance of good f oot care and implications of onychomycosis. Social History Review of Systems - Cardiovascular: Denies chest pain. - Respiratory: Denies shortness of breat h. - Gastrointestinal: Denies abdominal mani n, blood in stool, constipation, diarrhea. - Genitourinary: Denies urinary issues. Physical Exam General: Cooperative, healthy appearing, comfortable, no acute distress and well developed, obese Orientation: Patient oriented x3 Limitations: No limitations Head: Normal to inspection Ears: Hearing grossly normal bilaterally Nose: Normal external nose present Face and sinus: Normal facial exam Eyes: Appearance normal, both eyes and all related structures Neck: Normal visual inspection and Yes full ROM Respiratory: Lungs are fairly clear Cardiovascular: Regular rate and rhythm. Normal S1 and S2 GI: Normal to inspection. Soft to palpation and nontender Skin: dry skin noted Neuro: Patient oriented x3 Extremities: Onychomycosis noted to bilateral toes toenails, elongated toenails, and dirt-like discoloration between toes and feet in general. Results - Labs: Hemoglobin A1c is 6.8. - Tests: PSA test is up to date. Plan 1. 8. We will maintain regular follow-up visits to monitor the condition. Wolff screenings, such as eye examinations and PSA tests, are updated. Onychomycosis management includes education about foot care, and a referral to a material control manager was provided. A colonoscopy is due in the fall, and we have facilitated the referral for prompt scheduling. Emphasis was on preventive strategies through consistent monitoring.: Discussion Notes During this visit, I discussed the ongoing management of the patient's Type 2 Diabetes Mellitus, with the current A1c suggesting good control. We reviewed the importance of regular health maintenance checks, including eye exams to prevent retinopathy and PSA evaluations to monitor prostate health. A colonoscopy has been scheduled as part of age-appropriate screening. The patient was informed about his onychomycosis and referred to podiatry for professional nail care to prevent diabetic foot complications. Throughout the discussion, I emphasized preventive care, lifestyle modifications, and monitoring strategies to maintain and improve health outcomes. Patient Instructions - Monitor blood glucose regularly as pre viously instructed. - Schedule an appointment with the podia trist for nail care. - Continue regular eye check-ups for vijaya betes. - Ensure colonoscopy is scheduled in the fall. - Practice good foot hygiene, washing an d drying feet correctly. - Follow up with scheduled appointments for ongoing care. [facility] Medical History Physical exam Hypothyroid Leg edema GERD (gastroesophageal reflux disease) Lung nodule Thyroid carcinoma Presbyesophagus Thyroid nodule Cervical adenopathy Surgical History H/O colonoscopy History of thyroidectomy History of appendectomy Family History Father HTN (hypertension) Diabetes mellitus Mother No problems noted. Maternal Grandmother HTN (hypertension) Brother No problems noted. Social History Housing: House Alcohol intake: never Patient Tobacco Use Status: Never used Tobacco e-Cigarette/Vaping Use: Never Used Second Hand Smoke Exposure: No service: No Current occupational status: employed Current occupation: [employer] Current occupational exposures/hazards: No Cognitive needs: No Hearing needs: No Vision needs: No Questionnaire PHQ-9 Over the last 2 weeks, how often have you been bothered by any of the following problems? 1. Little interest or pleasure in doing things: not at all 2. Feeling down, depressed, or hopeless: not at all 3. Trouble falling or staying asleep, or sleeping too much: not at all 4. Feeling tired or having little energy: not at all 5. Poor appetite or overeating: not at all 6. Feeling bad about yourself - or that you are a failure or have let yourself or your family down: not at all 7. Trouble concentrating on things, such as reading the newspaper or watching television: not at all 8. Moving or speaking so slowly that other people could have noticed. Or the opposite - being so fidgety or restless that you have been moving around a lot more than usual: not at all 9. Thoughts that you would be better off or of hurting yourself in some way: not at all Total score: 0 Depression Screening Interpretation: Negative Depression Screening Done: Yes 94936 - PHQ-9 Billing: Yes Source: Developed by Drs. Ernst Carpenter, Tierney Newsome, Ashwin Solano and colleagues, with an educational ana maría from [employer]. Thrive Questionnaire Date Thrive assessed: 01/15/25 I am a: Patient What is your living situation today?: I have a steady place to live Within the past 12 months, did the food you bought not last and you didn't have the money to get more?: Never true Within the past 12 months, did you worry whether your food would run out before you got money to buy more?: Never true Do you have trouble paying for medicines?: No Do you have trouble getting transportation to medical appointments?: No Do you have trouble paying your heating and electricity bill?: No Do you have trouble taking care of your child, family member or friend?: No Do you have trouble with day-to-day activities such as bathing, preparing meals, shopping, managing finances, etc.?: No Are you currently unemployed and looking for a job?: Yes Are you interested in more education?: No Please select the resources that you would like help with: None Currently or been in a relationship where the following occur: No concerns reported THRIVE Score: 0 AUDIT C Alcohol Use Questionnaire (AUDIT-C) 1. How often do you have a drink containing alcohol?: Never 3. How often do you have six or more drinks on one occasion?: Never Total Score: 0 Score Reviewed/Action Taken: Yes JASON-7 AMB Questionnaire JASON-7 Date JASON - 7 assessed: 01/15/25 Feeling nervous, anxious, or on edge: 0 = Not at all Not being able to stop or control worryin = Not at all Worrying too much about different things: 0 = Not at all Trouble relaxin = Not at all Being so restless that it is hard to sit still: 0 = Not at all Becoming easily annoyed or irritable: 0 = Not at all Feeling afraid as if something awful might happen: 0 = Not at all Total JASON-7 score (0-4 normal; 5-9 mild; 10-14 moderate; 15-21 severe): 0 Source: Developed by Drs. Ernst Carpenter, Tierney Newsome, Ashwin Solano and colleagues, with an educational ana maría from [employer]. JASON-7 Assessment Billing JASON-7 Assessment Tool: JASON-7 Assessment 80299 Physical exam (Primary Care) Vital Signs: Last Vital Signs Pulse 90 01/15/25 10:09 BP 122/80 01/15/25 10:09 Pulse Ox 95 01/15/25 10:09 Oxygen Delivery Method Room Air 01/15/25 10:09 BMI result Body Mass Index 31.4 Tobacco/Smoking Status: Tobacco use Status Tobacco use date assessed 01/15/25 01/15/25 10:10 Patient Tobacco Use Status Never used Tobacco 01/15/25 10:10 e-Cigarette/Vaping Use Never Used 01/15/25 10:10 PHQ-9: PHQ-9 Score PHQ-9: Total score 0 01/15/25 10:10 Depression Screening Interpretation: Negative Thrive Assessment: Date of Thrive Assessment Date Thrive assessed 01/15/25 01/15/25 10:10 Currently or been in a relationship where the following occur: No concerns reported Results AMB Hemoglobin A1c AMB Hemoglobin A1c 6.8 % Last Edit by Miguel Ángel Hopkins CMA on 01/15/25 10: 41 Coding Level of Care Code Est Pt Level 3 (42775) Est Pt Prev Care 40-64y(89834) Diagnoses Diabetes E11.9 Onychomycosis B35.1 Overgrown toenails L60.2 Screen for colon cancer Z12.11 Tubular adenoma of colon D12.6 Additional Codes JASON-7 Assessment Billing - JASON-7 Assessment Tool: JASON-7 Assessment 23204 ([id number]) PHQ-9 - 26948 - PHQ-9 Billing: Yes ([id number]) Assessment & Plan Assessment & Plan (1) Diabetes: Code(s): E11.9 - Type 2 diabetes mellitus without complications Category: Medical (2) Onychomycosis: Code(s): B35.1 - Tinea unguium Category: Medical (3) Overgrown toenails: Code(s): L60.2 - Onychogryphosis Category: Medical (4) Screen for colon cancer: Code(s): Z12.11 - Encounter for screening for malignant neoplasm of colon Category: Medical (5) Tubular adenoma of colon: Comment: One TA and 1 sessile on 2021 scope repeat in 5 years aeb Code(s): D12.6 - Benign neoplasm of colon, unspecified Category: Medical Plan . Orders: Orders TSH reflex Free T4 Today E11.9 - Type 2 diabetes mellitus without complications UA CC w/rflx Micro + Cult Today E11.9 - Type 2 diabetes mellitus without complications Complete Blood Count Auto Diff Today E11.9 - Type 2 diabetes mellitus without complications Comprehensive [place]. Panel Fast Today E11.9 - Type 2 diabetes mellitus without complications Lipid Panel Today E11.9 - Type 2 diabetes mellitus without complications Microalbumin, Random (w Creat) Today E11.9 - Type 2 diabetes mellitus without complications Referrals Podiatry Referral B35.1 - Tinea unguium, L60.2 - Onychogryphosis Gastroenterology Referral D12.6 - Benign neoplasm of colon, unspecified, Z12.11 - Encounter for screening for malignant neoplasm of colon Medications: Discontinued tirzepatide Discontinued Reason: No Longer Medically Relevant 5 mg (0.5 mL) subcut QWEEK 4 weeks 2 mL 0RF
--- OUTSIDE RECORDS SUMMARY | 2025-01-15 11:27 | XMS_ITS | Clinical Summary ---
Author Organization [facility] Address [address] [place] [id number] Phone Care Team Providers Care Box Truck Driver Name Role Phone Pcp, Unknown Primary Care Provider Unavailabl e Medications Medication Sig Dispensed Refills Start Date End Date Status levothyroxine (SYNTHROID, LEVOTHROID) 100 MCG tablet Take 100 mcg by mouth every morning. Active metFORMIN (GLUCOPHAGE-XR) 750 MG 24 hr tablet Take 750 mg by mouth daily with dinner. Active pantoprazole (PROTONIX) 40 MG tablet Take 40 mg by mouth daily. Active cholecalciferol (VITAMIN D3) 400 unit tablet Take 800 Units by mouth daily. Active Social History Tobacco Use Types Packs/Day Years Used Date Smoking Tobacco: Never Smokeless Tobacco: Never Alcohol Use Standard Drinks/Week Comments Never 0 (1 standard drink = 0.6 oz pur e alcohol) Education Answer Date Recorded Are you interested in more education? Not on alejandra e 01/08/2023 Are you concerned about learning? Not on file 01/08/2023 No 01/08/2023 No 01/08/2023 Digital Access Answer Date Recorded No 02/08/2023 No 02/08/2023 Reliable internet access at home? Not on file 02/08/2023 Device with a working camera? Not on file Sex and Gender Information Value Date Recorded Sex Assigned at Not on file Gender Identity Not on file Sexual Orientation Not on file Last Filed Vital Signs Vital Sign Reading Time Taken Comments Blood Pressure 121/82 12/30/2021 2:45 PM EDT Pulse 92 12/30/2021 2:45 PM EDT Temperature 36.8 ??C (98.2 ??F) 12/30/2021 12:56 PM E DT Respiratory Rate 14 12/30/2021 2:45 PM EDT Oxygen Saturation 94% 12/30/2021 2:45 PM EDT Inhaled Oxygen Concentration - - Weight - - Height - - Body Mass Index - - Plan of Treatment Not on file Medical Devices Not on file Natalie, Roscoe Personal/Family Self 1970 [address] [place] [address] Natalie, Roscoe Personal/Family Self 1970 [address] [place] [address] Natalie, Roscoe Personal/Family Self 1970 [address] [place] [address] Natalie, Roscoe Personal/Family Self 1970 [address] [place] [address] Care Teams Box Truck Driver Relationship Specialty Start Date End Date Pcp, Unknown PCP - General 12/30/21 Additional Source Comments The information contained in this document represents components of the legal health record. It is not the complete legal health record.[facility]
== END 2025-01-15 10:42 | disposition home or self-care (01) ==
LOC: HO.HMCC 10:04
PROVIDERS: PCP Nurse Practitioner Family; Visit Provider Nurse Practitioner Family
DX: Z00.00 Encounter for general adult medical examination without abnormal findings (principal); E11.9 Type 2 diabetes mellitus without complications; B35.1 Tinea unguium; L60.2 Onychogryphosis; Z12.11 Encounter for screening for malignant neoplasm of colon; D12.6 Benign neoplasm of colon, unspecified

== ENCOUNTER → 2025-01-15 10:04 | Outpatient (BNVA) | payer MEDICARE, MEDICAID, SELFPAY | PROVIDERS: PCP Nurse Practitioner Family; Visit Provider Nurse Practitioner Family | DX: Z00.00 Encounter for general adult medical examination without abnormal findings (principal); E11.9 Type 2 diabetes mellitus without complications; B35.1 Tinea unguium; L60.2 Onychogryphosis; D12.6 Benign neoplasm of colon, unspecified | CPT/HCPCS: 83036; 96127; 99212; 99396 ==

== ENCOUNTER 2025-04-25 13:57 | Outpatient (AMB) | payer MEDICARE, MEDICAID, SELFPAY ==
[2025-04-25 14:00] VITALS: BP 112/74; PULSE 93; O2SAT 97; BMI 30.9
--- NOTE | 2025-04-25 14:00 | MHC.PC.OV ---
Vital Signs 04/25/25 14:00 Height 5 ft 8 in Weight 203 lb BMI 30.9 BP 112/74 Blood Pressure Location Lt brachial Position Sitting Pulse 93 Pulse Source Pulse Oximeter Pulse Oximetry (%) 97 Intake Visit Reasons: HDF/[facility]/Diverticulitis Real Estate Legal Assistant Required: No Accompanied by: Self / Same As Patient Allergies No Known Allergies (No Known Allergies*) Allergy (Verified 04/25/25 14:00) Tobacco use date assessed: 01/15/25 Dental Screening Dental Screen Date: 01/15/25 HPI HPI Comments History of Present Illness Details Patient is a 55-year-old male with a past medical history of hypothyroidism s/p thyroidectomy, DMT2, psoriasis, GERD, diabetic gastroparesis who was here for a hospital discharge follow-up. The patient went to the [facility] Emergency Department complaining of the abdominal pain after eating a meal at the cracker barrel. He was found to be tachycardic and had a leukocytosis and a lactate of 2.4, CT showed diverticulitis of the distal descending and proximal sigmoid colon. He was diagnosed with diverticulitis and admitted on April 16. He was given a IV antibiotics, fluids and was transitioned to p.o. Augmentin and discharged on April 19. They checked his TSH and it was 11.49. He was also prescribed Zofran for his nausea and it was recommended he have a repeat colonoscopy in 4-6 weeks. Today, patient states that he is feeling much better and is having normal bowel movements, he denies any bloody or black stools or fevers. He finished his Augmentin and did not take Zofran as he didn't feel nauseous. His stools are still mushy . He is tolerating a regular diet. He does have an follow-up on June 19 at [facility] for a repeat colonoscopy. He tells me he had issues with an ileus in the past and gets constipated and has to manually disimpact himself. He admits to some acid reflux but takes pantoprazole but says when he was in the hospital, he wasn't taking it. He has been taking his levothyroxine daily, he misses a dose here and there but typically takes it. He is also concerned about weight gain, 10lbs over the last year. He just had his levothyroxine bumped from 125mcg to 150mcg a few days ago. [facility] Medical History (Updated 04/25/25 @ 14:33 by Annie Matute PA-C) Acute diverticulitis Physical exam Hypothyroid Leg edema GERD (gastroesophageal reflux disease) Lung nodule Thyroid carcinoma Presbyesophagus Thyroid nodule Cervical adenopathy Surgical History H/O colonoscopy History of thyroidectomy History of appendectomy Family History Father HTN (hypertension) Diabetes mellitus Mother No problems noted. Maternal Grandmother HTN (hypertension) Brother No problems noted. Social History Housing: House Alcohol intake: never Patient Tobacco Use Status: Never used Tobacco e-Cigarette/Vaping Use: Never Used Second Hand Smoke Exposure: No service: No Current occupational status: employed Current occupation: [employer] Current occupational exposures/hazards: No Cognitive needs: No Hearing needs: No Vision needs: No Questionnaire Thrive Questionnaire Date Thrive assessed: 01/08/25 I am a: Patient What is your living situation today?: I have a steady place to live Within the past 12 months, did the food you bought not last and you didn't have the money to get more?: Never true Within the past 12 months, did you worry whether your food would run out before you got money to buy more?: Never true Do you have trouble paying for medicines?: No Do you have trouble getting transportation to medical appointments?: No Do you have trouble paying your heating and electricity bill?: No Do you have trouble taking care of your child, family member or friend?: No Do you have trouble with day-to-day activities such as bathing, preparing meals, shopping, managing finances, etc.?: No Are you currently unemployed and looking for a job?: Yes Are you interested in more education?: No Please select the resources that you would like help with: None Currently or been in a relationship where the following occur: No concerns reported THRIVE Score: 0 AUDIT C Alcohol Use Questionnaire (AUDIT-C) 1. How often do you have a drink containing alcohol?: Never 3. How often do you have six or more drinks on one occasion?: Never Total Score: 0 Score Reviewed/Action Taken: Yes JASON-7 AMB Questionnaire JASON-7 Date JASON - 7 assessed: 01/15/25 Source: Developed by Drs. Ernst Carpenter, Tierney Newsome, Ashwin Solano and colleagues, with an educational ana maría from [employer]. Review of Systems Const All systems reviewed & are unremarkable except as noted in HPI and below Physical exam (Primary Care) Vital Signs: Last Vital Signs Pulse 93 04/25/25 14:00 BP 112/74 04/25/25 14:00 Pulse Ox 97 04/25/25 14:00 BMI result Body Mass Index 30.9 Tobacco/Smoking Status: Tobacco use Status Tobacco use date assessed 01/15/25 04/25/25 14:03 Patient Tobacco Use Status Never used Tobacco 04/25/25 14:03 e-Cigarette/Vaping Use Never Used 04/25/25 14:03 Thrive Assessment: Date of Thrive Assessment Date Thrive assessed 01/08/25 04/25/25 14:03 Currently or been in a relationship where the following occur: No concerns reported Const General: cooperative, healthy appearing, comfortable, no acute distress and well developed Orientation/consciousness: patient oriented x3 Limitations: no limitations HENMT Head: Yes normal to inspection Ears: hearing grossly normal bilaterally General nose exam: Normal external nose present Face and sinus: Yes normal facial exam Eyes General: appearance normal, both eyes and all related structures Neck Neck: Yes normal visual inspection and Yes full ROM Resp Effort & Inspection: normal respiratory effort and able to speak in complete sentences Auscultation: clear to auscultation bilaterally Cardio Rate: regular rate Rhythm: regular rhythm Heart sounds: normal S1 and S2 GI Inspection: Yes normal to inspection Palpation (GI): Soft to palpation and nontender Skin General skin exam: no rashes or lesions noted Neuro General: patient oriented x3 Extrem General: Yes normal to inspection Coding Level of Care Code Est Pt Level 4 (16099) Diagnoses Hospital discharge follow-up Z09 Elevated TSH R79.89 Hypothyroid E03.9 Acute diverticulitis K57.92 Assessment & Plan Assessment & Plan (1) Hospital discharge follow-up: Code(s): Z09 - Encounter for follow-up examination after completed treatment for conditions other than malignant neoplasm Category: Medical Plan: - VSS, patient well-appearing, abdominal exam is benign, appears completely recovered from his acute diverticulitis flare - please be sure to go to your GI appointment on June 19 - please continue to take the new higher dose of your levothyroxine 150 mcg daily and have your lab rechecked in the end of June. - as discussed, your elevated TSH could be causing her weight gain and constipation. You can use a Fleet enema as needed for constipation (2) Elevated TSH: Code(s): R79.89 - Other specified abnormal findings of blood chemistry Category: Medical Plan: As above (3) Hypothyroid: Code(s): E03.9 - Hypothyroidism, unspecified Category: Medical Plan: As above (4) Acute diverticulitis: Code(s): K57.92 - Diverticulitis of intestine, part unspecified, without perforation or abscess without bleeding Category: Medical Plan: As above Orders: Orders TSH reflex Free T4 07/04/25 R79.89 - Other specified abnormal findings of blood chemistry
--- OUTSIDE RECORDS SUMMARY | 2025-04-25 14:48 | XMS_ITS | Clinical Summary ---
Author Organization [facility] Address [address] [facility] [address] [place] [phone] Phone Care Team Providers Care Motorsports Technician Name Role Phone Pcp, Unknown Primary Care Provider Unavailabl e Medications levothyroxine (SYNTHROID, LEVOTHROID) 100 MCG tablet Take [...] Recorded Sex Assigned at Not on file Legal Sex Male 12:32 PM EDT Gender Identity Not on file Sexual Orientation Not on file Last Filed Vital Signs Vital Sign Reading Time Taken Comments Blood Pressure 121/82 12/30/2021 2:45 PM EDT Pulse 92 12/30/2021 2:45 PM EDT Temperature 36.8 C (98.2 F) 12/30/2021 12:56 PM EDT Respiratory Rate 14 12/30/2021 2:45 PM EDT Oxygen Saturation 94% 12/30/2021 2:45 PM EDT Inhaled Oxygen Concentration - - Weight - - Height - - Body Mass Index - - Plan of Treatment Not on file Medical Devices Not on file Insurance [facility] & [place] [facility] & [facility] & [facility] & [facility] PART [facility] & [place] & B [facility] PART A & B [facility] MEDICARE PART A & B Care Teams Motorsports Technician Relationship Specialty Start Date End Date Pcp, Unknown PCP - General 12/30/21 Additional Source Comments The information contained in this document represents components of the legal health record. It is not the complete legal health record.[facility]
== END 2025-04-25 15:06 | disposition home or self-care (01) ==
LOC: HO.HMCC 13:58
PROVIDERS: PCP Nurse Practitioner Family; Visit Provider Physician Assistant
DX: Z09 Encounter for follow-up examination after completed treatment for conditions other than malignant neoplasm (principal); R79.89 Other specified abnormal findings of blood chemistry; E03.9 Hypothyroidism, unspecified; K57.92 Diverticulitis of intestine, part unspecified, without perforation or abscess without bleeding

== ENCOUNTER → 2025-04-25 13:57 | Outpatient (BNVA) | payer MEDICARE, MEDICAID, SELFPAY | PROVIDERS: PCP Nurse Practitioner Family; Visit Provider Physician Assistant | DX: Z09 Encounter for follow-up examination after completed treatment for conditions other than malignant neoplasm (principal); R79.89 Other specified abnormal findings of blood chemistry; E03.9 Hypothyroidism, unspecified; K57.92 Diverticulitis of intestine, part unspecified, without perforation or abscess without bleeding | CPT/HCPCS: 99212 ==

== ENCOUNTER 2025-06-19 10:25 | Outpatient (AMB) | payer MEDICARE, MEDICAID, SELFPAY ==
[2025-06-19 10:28] VITALS: BP 117/62; PULSE 94; BMI 29.5
--- NOTE | 2025-06-19 10:28 | A.OFFVIS_ITS ---
Vital Signs 06/19/25 10:28 Height 5 ft 8 in Weight 194 lb 0.108 oz BMI 29.5 BP 117/62 Blood Pressure Location Lt brachial Position Sitting Pulse 94 Intake Visit Reasons: Repeat Ransom last seen 06/2022 Intake Note: Patient in office today for repeat colonoscopy screening. CC: Pt states that he had been at the hospital ([facility]) a couple times over the past year. On 04/22 he was seen for diverticulitis. Ehs Teacher Required: No Accompanied by: Self / Same As Patient Allergies No Known Allergies (No Known Allergies*) Allergy (Verified 06/19/25 10:37) HPI HPI Repeat Ransom last seen 06/2022: Details: There are no prior problems with anesthesia or sedation. He denies any cardiac or respiratory problems. NO ID problems. There is cancer in the family, but he does not know what type. He seems to be mildly developmentally delayed and defers to his family for this background information. Assessment & Plan (1) Tubular adenoma of colon: Comment: One TA and 1 sessile on 2021 scope repeat in 5 years aeb Code(s): D12.6 - Benign neoplasm of colon, unspecified Plan: The procedure should be repeated in 5 years due to the polyps being adenomas. He tolerated the procedure well. He did not like the prep. His bowels returned to normal after a few days. He is agreeable to a 5 year follow up. Laboratory Tests 11/02/24 11:37 WBC 7.2 Hgb 17.3 Hct 50.6 Plt Count 197 Total Bilirubin 1.1 H AST 31 ALT 52 H Alkaline Phosphatase 61 TSH 7.12 H Free T4 0.89 TODAY'S VISIT [facility] Medical History Acute diverticulitis Physical exam Hypothyroid Leg edema GERD (gastroesophageal reflux disease) Lung nodule Thyroid carcinoma Presbyesophagus Thyroid nodule Cervical adenopathy Surgical History H/O colonoscopy History of thyroidectomy History of appendectomy Family History Father HTN (hypertension) Diabetes mellitus Mother No problems noted. Maternal Grandmother HTN (hypertension) Brother No problems noted. Social History Housing: House Alcohol intake: never Patient Tobacco Use Status: Never used Tobacco e-Cigarette/Vaping Use: Never Used Second Hand Smoke Exposure: No service: No Current occupational status: employed Current occupation: [employer] Current occupational exposures/hazards: No Cognitive needs: No Hearing needs: No Vision needs: No Review of Systems Const Denies fatigue, Denies fever(s), Denies night sweats, Denies poor appetite and Denies weight loss ENT Reports Normal hearing present, Denies dental pain, Denies dysphagia, Denies hearing loss, Denies mouth pain, Denies odynophagia, Denies throat swelling, Denies tongue swelling and Reports other (Dentition adequate) Card Reports no additional complaints Resp Reports cough GI Details: Denies abdominal pain, Denies melena, Denies bloating, Denies hematochezia, Denies constipation, Denies GI cramping, Denies dysphagia, Denies excessive flatus, Denies early satiety, Denies heartburn, Denies diarrhea, Denies nausea, Denies odynophagia, Denies vomiting and Denies hematemesis Skin/Breast Denies pruritus, Denies lesions, Denies rash and Denies jaundice Neuro Reports Normal hearing present and Denies Abnormal speech present Endo Denies fatigue Aller/Immun Denies throat swelling and Denies tongue swelling Physical Exam Vital Signs: Last Vital Signs Pulse 94 06/19/25 10:28 BP 117/62 06/19/25 10:28 BMI result Body Mass Index 29.5 Const General: cooperative, no acute distress, well developed and well groomed Nutritional Appearance: well nourished and obese Orientation/consciousness: oriented to person, oriented to place and oriented to time Limitations: No language barrier and other limitations HEENT Head: Yes normocephalic and Yes atraumatic Eyes General: appearance normal, both eyes and all related structures Pupils: Equal, round and reactive pupils present Neck Neck: Yes normal visual inspection and Yes no lymphadenopathy Thyroid: Thyroid normal Resp Effort & Inspection: normal respiratory effort, able to speak in complete sentences and Actively coughing Quality: dry Auscultation: wheezes Cardio Rate: regular rate Rhythm: regular rhythm Heart sounds: Normal, physiologic split S2 sound present Peripheral pulses: radial pulses present and posterior tibial pulses present GI Inspection: No distended, No Abdominal panniculus present and Yes obesity Palpation (GI): Soft to palpation, nontender, no guarding, not rigid and No hepatosplenomegaly present Percussion: Yes normal to percussion Auscultation: normal bowel sounds Rectal Exam - Male: Yes deferred Skin General skin exam: no rashes or lesions noted, turgor normal, skin not dry, no jaundice, No spider nevi and no striae Rashes: no rashes Nails: normal Neuro General: oriented to person, oriented to place and oriented to time Cranial nerves: Yes Equal, round and reactive pupils present and Yes Normal hearing present Speech: No Abnormal speech present Extrem General: Yes normal to inspection, No clubbing, No cyanosis and No edema Psych Appearance: grossly normal and well kempt Mental Status: other Speech and movement: Normal speech and movement present Affect: normal affect Attitude: cooperative Thought process: not confabulating and Impoverished thought process present Thought content: Normal thought content present Insight: Poor insight present (Psych) Judgement: Poor judgement present (Psych) Results Reviewed Results Reviewed: Laboratory Tests 11/02/24 11:37 WBC 7.2 Hgb 17.3 Hct 50.6 Plt Count 197 Total Bilirubin 1.1 H AST 31 ALT 52 H Alkaline Phosphatase 61 TSH 7.12 H Free T4 0.89 Assessment & Plan Assessment & Plan (1) Tubular adenoma of colon: Comment: One TA and 1 sessile on 2021 scope repeat in 5 years aeb Code(s): D12.6 - Benign neoplasm of colon, unspecified Category: Medical Plan He is due his health problem as he has had a couple of bouts of diverticulitis since I last saw him. Unfortunately, he came alone today and being that he is slightly developmentally delayed he can not give me a good history as to whether he has constipation or not. He also has a cough today it is coughing furiously, and he says that his parents had to stay home because they are very sick. There are no prior problems with anesthesia or sedation. He denies any cardiac or respiratory problems. NO ID problems. There is cancer in the family, but he does not know what type. He seems to be mildly developmentally delayed and defers to his family for this background information. Orders: Referrals GI Procedure Notification D12.6 - Benign neoplasm of colon, unspecified Medications: New sodium,potassium,mag sulfates 17.5-3.13-1.6 gram (Suprep Bowel Prep Kit) 480 mL orally; FOR COLONOSCOPY PREP 354 mL 0RF Coding Level of Care Code Est Pt Level 4 (21004) Diagnoses Tubular adenoma of colon D12.6 Time Spent (min) 34
== END 2025-06-19 11:00 | disposition home or self-care (01) ==
LOC: HO.HGI 10:26
PROVIDERS: PCP Nurse Practitioner Family; Visit Provider Nurse Practitioner
DX: D12.6 Benign neoplasm of colon, unspecified (principal)
CPT/HCPCS: 99214

== ENCOUNTER → 2025-06-19 10:25 | Outpatient (BNVA) | payer MEDICARE, MEDICAID, SELFPAY | PROVIDERS: PCP Nurse Practitioner Family; Visit Provider Nurse Practitioner | DX: D12.6 Benign neoplasm of colon, unspecified (principal); K57.92 Diverticulitis of intestine, part unspecified, without perforation or abscess without bleeding; R05.9 Cough, unspecified | CPT/HCPCS: 99212 ==

== ENCOUNTER 2025-06-26 08:16 | Outpatient (AMB) | payer MEDICARE, MEDICAID, SELFPAY ==
[2025-06-26 08:26] VITALS: BP 102/62; PULSE 92; RESP 16; O2SAT 95; BMI 29.5
--- NOTE | 2025-06-26 08:26 | A.OFFPC_ITS ---
Vital Signs 06/26/25 08:26 Height 5 ft 8 in Weight 194 lb BMI 29.5 BP 102/62 Blood Pressure Location Lt brachial Position Sitting Respiration 16 Pulse 92 Pulse Source Pulse Oximeter Pulse Oximetry (%) 95 Oxygen Delivery Method Room Air Intake Visit Reasons: follow up 4m Associate Spa Director Required: No Accompanied by: Self / Same As Patient Allergies No Known Allergies (No Known Allergies*) Allergy (Verified 06/26/25 08:41) Medication List - Last Reconciled 06/26/25 by DEEPAK Crisostomo atorvastatin 10 mg PO BEDTIME blood sugar diagnostic (FreeStyle Lite Strips) Use to check blood sugar twice a day- once in am fasting and again at a random time during the day blood-glucose meter (FreeStyle Lite Meter kit) Use to check blood sugar twice a day- once in am fasting and again at a random time during the day cholecalciferol (vitamin D3) (Vitamin D3) 20 mcg (2 x 10 mcg (400 unit)) PO QPM 90 days empagliflozin (Jardiance) 25 mg PO DAILY fluocinolone 0.01% 1 appl topical BID FreeStyle Amanda 2 Mazama (flash glucose scanning reader) TID NS FreeStyle Amanda 2 Sensor (flash glucose sensor) TD NS ketoconazole 2% 1 appl topical 3XW 30 days lancets (FreeStyle Lancets) Use to check blood sugar twice a day- once in am fasting and again at a random time during the day levothyroxine (Synthroid) 150 mcg PO DAILY 90 days losartan 25 mg PO DAILY ondansetron HCl 4 mg PO Q8H PRN pantoprazole 40 mg PO DAILY pioglitazone (Actos) 30 mg PO DAILY 90 days sodium,potassium,mag sulfates 17.5-3.13-1.6 gram (Suprep Bowel Prep Kit) 480 mL orally; FOR COLONOSCOPY PREP tamsulosin 0.4 mg PO DAILY Tobacco use date assessed: 06/26/25 Dental Screening Dental Screen Date: 06/26/25 Did you have a dental visit in the last 12 months?: Yes Did you have a dental problem in the last 6 months where you did not have access to dental care?: No HPI follow up 4m HPI Details Chief Complaint The patient presents for a diabetes follow-up. History of Present Illness The patient is a 55-year-old male presenting with a follow-up for diabetes management. His current A1c level is 7.0, and no changes to his diabetes management plan are being made at this time. He is knowledgeable about the signs and symptoms of hypoglycemia and how to manage them. The patient also has onychomycosis, which is characterized by elongated toenails. Additionally, he has developed blisters on the distal aspect of the second toe of the left foot and smaller blisters on the medial aspect of the first big toe of the same foot. Right foot, second toe, distal tip with blister. Efforts are being made to arrange a consultation with a sorter packer for further evaluation and management. Pt aware of importance surrounding care of feet Social History Health Maintenance - Eye exam is up-to-date Review of Systems Physical Exam General: Cooperative, healthy appearing, comfortable, no acute distress and well developed Orientation: Patient oriented x3 Limitations: No limitations Head: Normal to inspection Ears: Hearing grossly normal bilaterally Nose: Normal external nose present Face and sinus: Normal facial exam Eyes: Appearance normal, both eyes and all related structures Neck: Normal visual inspection and Yes full ROM Respiratory: Normal respiratory effort and able to speak in complete sentences. Clear to auscultation bilaterally Cardiovascular: Regular rate and rhythm. Normal S1 and S2 GI: Normal to inspection. Soft to palpation and nontender Skin: No rashes or lesions noted Neuro: Patient oriented x3 Extremities: Onychomycosis noted. Small blister noted on the distal aspect of the left foot, second toe. Smaller blisters noted on the medial aspect of the first big toe of the left foot. second distal tip of right foot with small blister Results - Labs: A1c level is 7.0 Plan 1. Diabetes Mellitus The patient's diabetes management plan remains unchanged as the A1c level is currently at 7.0. The patient is aware of the signs and symptoms of hypoglycemia and how to manage them effectively. 2. Onychomycosis The patient is being referred to a sorter packer for further evaluation and management of onychomycosis. 3. Blisters On Feet The patient is advised to monitor the blisters on the feet and is being referred to a sorter packer for further evaluation. Discussion Notes During the visit, we discussed the current status of the patient's diabetes management, noting that the A1c level is stable at 7.0, and no changes are necessary at this time. We also reviewed the importance of recognizing and managing hypoglycemia. The patient was informed about the need for a podiatry consultation to address onychomycosis and blisters on the feet. Patient Instructions - Continue current diabetes management p jia. - Monitor for signs of hypoglycemia and manage as instructed. - Keep an eye on blisters and seek podia try consultation as scheduled. [facility] Medical History Acute diverticulitis Physical exam Hypothyroid Leg edema GERD (gastroesophageal reflux disease) Lung nodule Thyroid carcinoma Presbyesophagus Thyroid nodule Cervical adenopathy Surgical History H/O colonoscopy History of thyroidectomy History of appendectomy Family History Father HTN (hypertension) Diabetes mellitus Mother No problems noted. Maternal Grandmother HTN (hypertension) Brother No problems noted. Social History Housing: House Alcohol intake: never Patient Tobacco Use Status: Never used Tobacco e-Cigarette/Vaping Use: Never Used Second Hand Smoke Exposure: No service: No Current occupational status: employed Current occupation: [employer] Current occupational exposures/hazards: No Cognitive needs: No Hearing needs: No Vision needs: No Questionnaire PHQ-9 Over the last 2 weeks, how often have you been bothered by any of the following problems? 1. Little interest or pleasure in doing things: not at all 2. Feeling down, depressed, or hopeless: not at all 3. Trouble falling or staying asleep, or sleeping too much: not at all 4. Feeling tired or having little energy: not at all 5. Poor appetite or overeating: not at all 6. Feeling bad about yourself - or that you are a failure or have let yourself or your family down: not at all 7. Trouble concentrating on things, such as reading the newspaper or watching television: not at all 8. Moving or speaking so slowly that other people could have noticed. Or the opposite - being so fidgety or restless that you have been moving around a lot more than usual: not at all 9. Thoughts that you would be better off or of hurting yourself in some way: not at all Total score: 0 Depression Screening Interpretation: Negative Depression Screening Done: Yes 76671 - PHQ-9 Billing: Yes Source: Developed by Drs. Ernst Carpenter, Ashwin Schwarz and colleagues, with an educational ana maría from [employer]. Thrive Questionnaire Date Thrive assessed: 01/08/25 I am a: Patient What is your living situation today?: I have a steady place to live Within the past 12 months, did the food you bought not last and you didn't have the money to get more?: Never true Within the past 12 months, did you worry whether your food would run out before you got money to buy more?: Never true Do you have trouble paying for medicines?: No Do you have trouble getting transportation to medical appointments?: No Do you have trouble paying your heating and electricity bill?: No Do you have trouble taking care of your child, family member or friend?: No Do you have trouble with day-to-day activities such as bathing, preparing meals, shopping, managing finances, etc.?: No Are you currently unemployed and looking for a job?: Yes Are you interested in more education?: No Please select the resources that you would like help with: None Currently or been in a relationship where the following occur: No concerns reported THRIVE Score: 0 JASON-7 AMB Questionnaire JASON-7 Date JASON - 7 assessed: 01/15/25 Feeling nervous, anxious, or on edge: 0 = Not at all Not being able to stop or control worryin = Not at all Worrying too much about different things: 0 = Not at all Trouble relaxin = Not at all Being so restless that it is hard to sit still: 0 = Not at all Becoming easily annoyed or irritable: 0 = Not at all Feeling afraid as if something awful might happen: 0 = Not at all Total JASON-7 score (0-4 normal; 5-9 mild; 10-14 moderate; 15-21 severe): 0 Source: Developed by Drs. Ernst Carpenter, Tierney Newsome, Ashwin Solano and colleagues, with an educational ana maría from [employer]. JASON-7 Assessment Billing JASON-7 Assessment Tool: JASON-7 Assessment 78270 Physical exam (Primary Care) Vital Signs: Last Vital Signs Pulse 92 06/26/25 08:26 Resp 16 06/26/25 08:26 BP 102/62 06/26/25 08:26 Pulse Ox 95 06/26/25 08:26 Oxygen Delivery Method Room Air 06/26/25 08:26 BMI result Body Mass Index 29.5 Tobacco/Smoking Status: Tobacco use Status Tobacco use date assessed 06/26/25 06/26/25 08:30 Patient Tobacco Use Status Never used Tobacco 06/26/25 08:30 e-Cigarette/Vaping Use Never Used 06/26/25 08:30 PHQ-9: PHQ-9 Score PHQ-9: Total score 0 06/26/25 08:30 Depression Screening Interpretation: Negative Thrive Assessment: Date of Thrive Assessment Date Thrive assessed 01/08/25 06/26/25 08:30 Currently or been in a relationship where the following occur: No concerns reported Coding Level of Care Code Est Pt Level 3 (50042) Diagnoses Diabetes E11.9 Onychomycosis B35.1 Overgrown toenails L60.2 Additional Codes JASON-7 Assessment Billing - JASON-7 Assessment Tool: JASON-7 Assessment [id number] ([id number]) PHQ-9 - 28437 - PHQ-9 Billing: Yes ([id number]) Assessment & Plan Assessment & Plan (1) Diabetes: Code(s): E11.9 - Type 2 diabetes mellitus without complications Category: Medical (2) Onychomycosis: Code(s): B35.1 - Tinea unguium Category: Medical (3) Overgrown toenails: Code(s): L60.2 - Onychogryphosis Category: Medical Plan . Orders: Referrals Podiatry Referral B35.1 - Tinea unguium, E11.9 - Type 2 diabetes mellitus without complications, L60.2 - Onychogryphosis
--- OUTSIDE RECORDS SUMMARY | 2025-06-26 08:32 | XMS_ITS | Patient Health Record ---
Author Organization [facility] Address [address] [place] [address] Care Team Providers Care Undergraduate Advisor Name Role Phone Lukasz Patterson M.D. Primary Care Provider Dilcia aye Ernst Leyva Unavailable [phone] Reason For Referral No Information Medications Medication SIG (Take, Route, Frequency, Duration) Notes Start Date End Date Status Vitamin D 400 UNIT/ML 2 ml Orally Once a day Active Pantoprazole Sodium 40 MG 1 tablet Orall y Once a day Active Levothyroxine Sodium 88 MCG 1 tablet on an empty stomach in the morning Orally Once a day Active Multivitamin 1 1 tablet Orally once a day Active Immunizations Vaccine Route Administration Date Status Comme nts Influenza Unknown 06/12/2016 Administered Influenza Unknown 05/13/2018 Administered Problems Problem Type SNOMED Code ICD Code Onset Dates Problem Status W/U Status Risk Notes Problem Gastroesophageal reflux disease (736619902) Gastroesophageal reflux disease, esophagitis presence not specified (K21.9) Active confirmed Problem Hiatal hernia (02116755) Hiatal hernia (K44.9) Active confirmed Plan Of Treatment Future Test Test Name Order Date UPPER GI ENDOSCOPY 08/17/2016 UPPER GI ENDOSCOPY 11/23/2018 Insurance Providers Payer Name Payer Address Payer Phone Subscriber Number Group Number Insured Name Patient Relationship to Insured Coverage Start Date Coverage End Date MEDICARE OF [place] [address] [place] [id number] [phone] [id number] SUMEET ESTRADA Self - patient is the insured MEDICAID OF [facility] [address] [place] [phone] [id number] SUMEET ESTRADA Self - patient is the insured Medical (General) History Medical History History ICD Code GERD--UGI in 2014 with a HH and reflux Denies [place],DM,CVA,Lung disease,renal dise ase Thyroid nodule--s/p surgery--Hypothyroid ism Dermatitis Bronchitis Anxiety Panic attacks Surgical History Surgery Date(Month/Year) Complete Thyroidectomy Appendectomy Eye surgery as a child
== END 2025-06-26 10:18 | disposition home or self-care (01) ==
LOC: HO.HMCC 08:16
PROVIDERS: PCP Nurse Practitioner Family; Visit Provider Nurse Practitioner Family
DX: E11.9 Type 2 diabetes mellitus without complications (principal); B35.1 Tinea unguium; L60.2 Onychogryphosis; Z13.9 Encounter for screening, unspecified

== ENCOUNTER → 2025-06-26 08:16 | Outpatient (BNVA) | payer MEDICARE, MEDICAID, SELFPAY | PROVIDERS: PCP Nurse Practitioner Family; Visit Provider Nurse Practitioner Family | DX: E11.9 Type 2 diabetes mellitus without complications (principal); B35.1 Tinea unguium; L60.2 Onychogryphosis; S90.422A Blister (nonthermal), left great toe, initial encounter; S90.425A Blister (nonthermal), left lesser toe(s), initial encounter; S90.424A Blister (nonthermal), right lesser toe(s), initial encounter; X58.XXXA Exposure to other specified factors, initial encounter; Y93.9 Activity, unspecified; Y92.9 Unspecified place or not applicable; Y99.9 Unspecified external cause status | CPT/HCPCS: 83036; 96127; 99212 ==

== ENCOUNTER 2025-07-25 14:23 | Outpatient (REF) | payer MEDICARE, MEDICAID, SELFPAY ==
[2025-07-25 16:19] LABS: MANUAL DIFF FLAG NO
[2025-07-25 16:20] LABS: Appearance Urine Clear; Glucose Urine UA >=1000 mg/dL (Negative); PH 6.5 (5.0-9.0); Specific Gravity - Urine >= 1.030 (1.005-1.025); UMIC TRIGGER UACC YES
[2025-07-25 16:26] LABS: Hematocrit 50.4 % (42.0-52.0); Hemoglobin 17.1 g/dl (14.0-18.0); Imm Gran Abs Auto 0.02 X10*3/uL (0.00-0.03); Imm Gran Pct Auto 0.3 % (0.0-0.4); Lymphocytes Absolute Auto 1.2 X10*3/uL (1.2-4.9); Mean Corpuscular HGB Conc 33.9 g/dl (31.0-36.0); Mean Corpuscular Hemoglobin 31.2 pg (27.0-33.0); Mean Corpuscular Volume 92.0 fL (80.0-98.0); NRBC Abs Auto 0.000 X10*3/uL (0.0-0.012); NRBC Pct Auto 0.0 /100WBC (0.0-0.2); Platelet Count 204 X10*3/uL (160-400); Red Blood Count 5.48 X10*6/uL (4.60-5.80); White Blood Count 6.7 X10*3/uL (4.8-10.8)
[2025-07-25 16:45] LABS: Microalbum/Creatinine Ratio Ur 7.4 ug/mg cr (<30)
[2025-07-25 16:51] LABS: Alanine Aminotransferase 45 U/L (0-40); Albumin Level 4.8 g/dL (3.5-5.0); Alkaline Phosphatase 65 U/L (39-117); Anion Gap 13 (12-20); Aspartate Amino Transferase 32 U/L (5-37); Blood Urea Nitrogen 15 mg/dL (9-16); Calcium 9.5 mg/dL (8.4-10.2); Carbon Dioxide 27 mmol/L (22-29); Chloride 105 mmol/L (96-108); Cholesterol 141 mg/dL (<200); Estimated Glomerular Filt Rate > 60; HDL Cholesterol 35 mg/dL (>40); Potassium 3.8 mmol/L (3.3-5.1); Sodium 141 mmol/L (135-145); Total Protein 7.3 g/dL (6.5-8.0); Triglycerides 128 mg/dL (<150)
--- OUTSIDE RECORDS SUMMARY | 2025-07-25 17:50 | XMS_ITS | Clinical Summary ---
Author Organization [facility] Address [address] [place] [id number] Phone Care Team Providers Care Carnival Worker Name Role Phone Pcp, Unknown Primary Care [...] file Medical Devices Not on file Insurance [facility] & [place] B [facility] & [facility] & [facility] & [place] MED[place] & B [facility] MED[facility] PART A & B [facility] MEDICARE PART A & B Care Teams Carnival Worker Relationship Specialty Start Date End Date Pcp, Unknown PCP - General 12/30/21 Additional Source Comments The information contained in this document represents components of the legal health record. It is not the complete legal health record.[facility]
--- OUTSIDE RECORDS SUMMARY | 2025-07-25 17:50 | XMS_ITS | Patient Health Record ---
Author Organization [facility] Address [address] [place] [address] Care Team Providers Care Financial Service Professional Name Role Phone Lukasz Patterson M.D. Primary Care Provider Dilcia aye Ernst Leyva Unavailable [phone] Reason For Referral No Information Medications Medication [...] Status Risk Notes Problem Gastroesophageal reflux disease (812633625) Gastroesophageal reflux disease, esophagitis presence not specified (K21.9) Active confirmed Problem Hiatal hernia (04614437) Hiatal hernia (K44.9) Active confirmed Plan Of Treatment Future Test Test Name Order Date UPPER GI ENDOSCOPY 08/17/2016 UPPER GI ENDOSCOPY 11/23/2018 Insurance Providers Payer Name Payer Address Payer Phone Subscriber Number Group Number Insured Name Patient Relationship to Insured Coverage Start Date Coverage End Date MEDICARE OF [place] [address] [place] [id number] SUMEET ESTRADA Self - patient is the insured MEDICAID OF [facility] [address] [place] [phone] [id number] SUMEET ESTRADA Self - patient is the insured Medical (General) History Medical History History ICD Code GERD--UGI in 2014 with a HH and reflux Denies [place],DM,CVA,Lung disease,renal dise ase Thyroid nodule--s/p surgery--Hypothyroid ism Dermatitis Bronchitis Anxiety Panic attacks Surgical History Surgery Date(Month/Year) Complete Thyroidectomy Appendectomy Eye surgery as a child
[2025-07-25 18:02] LABS: Free T4 (Free Thyroxine) 1.56 ng/dL (0.71-1.85)
== END 2025-07-25 14:24 | disposition home or self-care (01) ==
LOC: HO.HMGCLDS 14:23
PROVIDERS: PCP Nurse Practitioner Family; Visit Provider Nurse Practitioner Family
DX: E11.9 Type 2 diabetes mellitus without complications (principal)
CPT/HCPCS: 36415; 80053; 80061; 81001; 82043; 82570; 84439; 84443; 85025